=== PATIENT | male | born 1975 | race Caucasian/White ===

== ENCOUNTER 2019-12-23 10:36 | Emergency (ER) | payer OTHER, SELFPAY ==
[2019-12-23 10:40] VITALS: BMI 56.8
[2019-12-23 10:42] VITALS: BP 178/63; PULSE 61; RESP 20; TEMP 36.6; O2SAT 97
[2019-12-23 10:45] VITALS: BP 178/63; PULSE 60; RESP 18; O2SAT 96
--- NOTE | 2019-12-23 10:55 | ED_ITS ---
HPI - Wound/Laceration General: Chief Complaint: Wound/Laceration Stated Complaint: RIGHT WRIST LAC Time Seen by Provider: 12/23/19 10:39 History of Present Illness: HPI narrative: Cut left forearm until box today Onset (ago): hour(s) Location: other Extremity Location: Left: forearm Place: other Patient tetanus UTD: Yes Context: accidental Associated symptoms: Reports no associated symptoms; Denies chills, fever(s), nausea or vomiting Review of Systems Const: Denies: fever(s), chills or body aches Eyes: Denies: change in vision or blurry vision ENMT: Denies: throat pain or nasal congestion Card: Denies: chest pain or dyspnea on exertion Resp: Denies: dyspnea, productive cough or non-productive cough GI: Denies: abdominal pain, nausea or vomiting : Denies: difficulty urinating Musc: Denies: extremity pain Skin/Breast: Reports: other (Laceration left forearm); Denies: rash Neuro: Denies: headache(s) Psych: Denies: anxiety or depression Josr/Lymph: Denies: easy bruising Physical Exam Const: COMMON NORMALS: no acute distress, average body habitus and patient oriented x3 HENMT: COMMON NORMALS: normocephalic HEAD & SCALP: normal to inspection and normocephalic FACE & SINUS: normal facial exam Eye: COMMON NORMALS: conjunctivae normal GENERAL EYE: appearance normal, both eyes and all related structures CONJUNCTIVA: Yes conjunctivae normal Neck/C-Spine: COMMON NORMALS: no JVD Chest: COMMONS NORMALS: normal inspection of the chest Resp: COMMON NORMALS: normal respiratory effort Cardio: COMMON NORMALS: no JVD GI: COMMON NORMALS: Normal to inspection, nondistended, normoactive bowel sounds present Extremity: COMMON NORMALS: normal to inspection and full ROM Neuro: COMMON NORMALS: patient oriented x3 Skin: TRAUMA: laceration (Left forearm approximately inch and half long no active bleeding) Procedures Laceration Laceration 1: Site: upper extremity Side (If applicable): left Size (cm): 2.5 Description: linear Depth: simple, single layer Local Anesthetic: lidocaine 1% Amount of anesthesia used (mL): 2 Skin layer closed with: nylon Size (cm): 5-0 Number of sutures: 3 Technique: simple, interrupted Course Vital Signs: Vital signs: Vital Signs Temperature 97.9 F 12/23/19 10:42 Pulse Rate 63 12/23/19 11:09 Respiratory Rate 18 12/23/19 11:09 Blood Pressure 163/97 12/23/19 11:09 Pulse Oximetry 96 12/23/19 11:09 Discharge Plan Discharge Patient Disposition: Home, Self-Care Clinical Impression: Laceration Condition: Stable Discharge Orders: Discharge Order (Routine); Ordered 12/23/19 Ordered By: Juan Carlos Rizvi Discharge Diet: Usual diet Discharge Activity: Increase activity as tolerated Patient Instructions: Laceration (ED) Activity Restrictions/Additional Instructions: Follow laceration instructions and get sutures removed in 7 days Coding Level of Care Code ED Senior Lead Project Manager for [employer] Fwd Exam Comprehensive
[2019-12-23 11:09] VITALS: BP 163/97; PULSE 63; RESP 18; O2SAT 96
[2019-12-23] MEDS: lidocaine 1% INJ 20 mL 5 ML INTRADERMA (11:14)
== END 2019-12-23 13:49 | disposition home or self-care (01) ==
LOC: ER 11:29
PROVIDERS: Emergency Provider Nurse Practitioner Family
DX: S51.812A Laceration without foreign body of left forearm, initial encounter (principal); W45.8XXA Other foreign body or object entering through skin, initial encounter
CPT/HCPCS: 12001; 12345; 96372; 99281; 99282

== ENCOUNTER 2021-06-21 08:43 | Emergency (ER) | payer OTHER, SELFPAY ==
[2021-06-21 08:55] VITALS: BP 154/94; PULSE 85; RESP 18; TEMP 37.1; O2SAT 97; BMI 51.3
--- NOTE | 2021-06-21 09:11 | XRR_ITS ---
PROCEDURE INFORMATION: Exam: XR Chest Exam date and time: 06/21/2021 9:11 AM Age: 46 years old Clinical indication: Shortness of breath; Additional info: Covid + SOB TECHNIQUE: Imaging protocol: XR of the chest. Views: 1 view. COMPARISON: No relevant prior studies available. FINDINGS: Lungs: Patchy hazy interstitial pulmonary infiltrates are present bilaterally. Pleural spaces: Unremarkable. No pleural effusion. No pneumothorax. Heart/Mediastinum: Unremarkable. No cardiomegaly. Bones/joints: Unremarkable. XR/XR chest 1V portable [id number] IMPRESSION: Bilateral patchy hazy interstitial pulmonary infiltrates consistent with viral pneumonia.
--- NOTE | 2021-06-21 09:12 | ED_ITS ---
Documented by User: EN Faustin 06/21/21 16:13 HPI - COVID General: Chief Complaint: Shortness of Breath/Dyspnea Stated Complaint: SOB Covid + Time Seen by Provider: 06/21/21 08:57 Triage information: Has fever, cough or shortness of breath . Exposure to COVID + person last 14 days History of Present Illness: HPI Narrative: Unvaccinated patient states he tested positive at [facility] 10 days ago for COVID. Started with shortness of breath worsening last night. Said he lost taste and smell about 3 days ago also. Patient denies any chest pains, fever or chills. MD complaint: known COVID positive Prior testing date: 06/12/21 COVID 19 common symptoms: positive fever(s), dyspnea, fatigue, body aches, loss of sense of smell and/or taste and nasal congestion; negative headache(s), nausea or vomiting COVID 19 other sytmptoms: negative chest pain Onset (ago): day(s) Severity: mild Pertinent comorbid conditions: hypertension (Uncontrolled) Treatment prior to arrival: cold medicine COVID Results: No Data to Display Review of Systems Const: Reports: fever(s), body aches and fatigue Eyes: Denies: change in vision or blurry vision ENMT: Reports: nasal congestion Card: Denies: chest pain or dyspnea on exertion Resp: Reports: dyspnea GI: Denies: abdominal pain, nausea or vomiting : Denies: difficulty urinating Musc: Denies: extremity pain Skin/Breast: Denies: rash Neuro: Denies: headache(s) Psych: Denies: anxiety or depression Josr/Lymph: Denies: easy bruising Physical Exam Const: COMMON NORMALS: no acute distress, average body habitus and patient oriented x3 HENMT: COMMON NORMALS: normocephalic HEAD & SCALP: normal to inspection and normocephalic FACE & SINUS: normal facial exam Eye: COMMON NORMALS: conjunctivae normal GENERAL EYE: appearance normal, both eyes and all related structures CONJUNCTIVA: Yes conjunctivae normal Neck/C-Spine: COMMON NORMALS: no JVD Chest: COMMONS NORMALS: normal inspection of the chest Resp: COMMON NORMALS: normal respiratory effort Cardio: COMMON NORMALS: no JVD Extremity: COMMON NORMALS: normal to inspection and full ROM Neuro: COMMON NORMALS: patient oriented x3 Course Vital Signs: Vital signs: Vital Signs Temperature 98.7 F 06/21/21 08:55 Pulse Rate 86 06/21/21 10:52 Respiratory Rate 18 06/21/21 08:55 Blood Pressure 174/123 06/21/21 10:52 Pulse Oximetry 98 06/21/21 10:52 MDM - COVID MDM Narrative: Medical decision making narrative: Patient appears stable. He is in no acute distress. Positive for COVID more than 10 days. Does not qualify for MCA infusion. Chest x-ray shows viral pneumonia. Patient does not take blood pressure medication and has been told the last few years he has high blood pressure and he said he has chosen to watch instead of taking medication. Patient was advised to take medication as directed record blood pressures twice a day follow-up with his primary care provider and see if they are want to start him on blood pressure medication. Patient was given senna spirometer and instructed on lung exercises. COVID Results: No Data to Display Discharge Plan Discharge Patient Disposition: Home Clinical Impression: COVID-19, Borderline hypertension Condition: Stable Prescriptions: New Decadron 6 mg tablet 6 mg PO DAILY Qty: 7 RF: 0 ProAir HFA 90 mcg/actuation HFA aerosol inhaler 2 inh inhalation Q4H PRN (Reason: shortness of breath or wheezing) Qty: 6.7 RF: 0 Discharge Orders: Discharge ED (Routine); Ordered 06/21/21 Ordered By: Juan Carlos Rizvi Discharge Diet: Usual diet Discharge Activity: Increase activity as tolerated Patient Instructions: How to Recover from COVID-19 at Home (ED) Activity Restrictions/Additional Instructions: Follow-up with medical provider as directed. Take medications as prescribed. Return to the ER or your medical provider if condition worsens. Please read and understand discharge instructions. If any questions ask please. Monitor blood pressure readings daily, record those and submit readings after 2 weeks to your primary care provider Coding Level of Care Code ED Strategy Director for Ch[employer] Fwd Exam Comprehensive Documented by User: Stephon Mckeon DO 06/24/21 06:17 HPI - COVID General: Chief Complaint: Shortness of Breath/Dyspnea Stated Complaint: SOB Covid + Time Seen by Provider: 06/21/21 08:57 COVID Results: No Data to Display Course Vital Signs: Vital signs: Vital Signs Temperature 98.7 F 06/21/21 08:55 Pulse Rate 86 06/21/21 10:52 Respiratory Rate 18 06/21/21 08:55 Blood Pressure 174/123 06/21/21 10:52 Pulse Oximetry 98 06/21/21 10:52 MDM - COVID MDM Narrative: Medical decision making narrative: Chart reviewed and patient discussed with midlevel. Agree with assessment and plan. COVID Results: No Data to Display Discharge Plan Discharge Patient Disposition: Home Clinical Impression: COVID-19, Borderline hypertension Condition: Stable Prescriptions: New Decadron 6 mg tablet 6 mg PO DAILY Qty: 7 RF: 0 ProAir HFA 90 mcg/actuation HFA aerosol inhaler 2 inh inhalation Q4H PRN (Reason: shortness of breath or wheezing) Qty: 6.7 RF: 0 Discharge Orders: Discharge ED (Routine); Ordered 06/21/21 Ordered By: Juan Carlos Rizvi Discharge Diet: Usual diet Discharge Activity: Increase activity as tolerated Patient Instructions: How to Recover from COVID-19 at Home (ED) Activity Restrictions/Additional Instructions: Follow-up with medical provider as directed. Take medications as prescribed. Return to the ER or your medical provider if condition worsens. Please read and understand discharge instructions. If any questions ask please. Monitor blood pressure readings daily, record those and submit readings after 2 weeks to your primary care provider Coding Level of Care Code ED Strategy Director for [employer]ora Fwd Exam Comprehensive
[2021-06-21] MEDS: dexamethasone 4 mg Tablet 10 MG PO (10:34)
[2021-06-21 10:52] VITALS: BP 174/123; PULSE 86; O2SAT 98
== END 2021-06-21 10:53 | disposition home or self-care (01) ==
PROVIDERS: Emergency Provider Nurse Practitioner Family
DX: U07.1 COVID-19 (principal); R03.0 Elevated blood-pressure reading, without diagnosis of hypertension
CPT/HCPCS: 71045; 99283; J8540

== ENCOUNTER 2021-06-23 09:27 | Outpatient (RCR) | payer OTHER, SELFPAY | END 2021-07-10 23:59 | disposition home or self-care (01) | LOC: SPT 09:27 | PROVIDERS: PCP Family Medicine; Visit Provider Family Medicine | DX: M25.511 Pain in right shoulder (principal) | CPT/HCPCS: 97161 ==

== ENCOUNTER 2021-08-08 06:00 | Outpatient (RCR) | payer OTHER, SELFPAY | END 2021-09-07 23:59 | disposition home or self-care (01) | LOC: SPT 06:00 | PROVIDERS: PCP Family Medicine; Visit Provider Family Medicine | DX: M25.511 Pain in right shoulder (principal) | CPT/HCPCS: 97110 ==

== ENCOUNTER 2021-09-08 06:00 | Outpatient (RCR) | payer OTHER, SELFPAY | END 2021-10-07 23:59 | disposition home or self-care (01) | LOC: SPT 06:00 | PROVIDERS: PCP Family Medicine; Visit Provider Family Medicine | DX: M25.511 Pain in right shoulder (principal) | CPT/HCPCS: 97110 ==

== ENCOUNTER 2021-10-08 | Outpatient (RCR) | payer OTHER, SELFPAY | END 2021-10-25 23:55 | disposition home or self-care (01) | LOC: SPT | PROVIDERS: PCP Family Medicine; Visit Provider Family Medicine | DX: M25.511 Pain in right shoulder (principal) | CPT/HCPCS: 97110 ==

== ENCOUNTER 2021-11-08 06:00 | Outpatient (RCR) | payer OTHER, SELFPAY | END 2021-12-07 23:59 | disposition home or self-care (01) | LOC: SPT 06:00 | PROVIDERS: PCP Family Medicine; Referring Provider Family Medicine; Visit Provider Family Medicine | DX: M25.511 Pain in right shoulder (principal) | CPT/HCPCS: 97110 ==

== ENCOUNTER 2021-12-08 06:00 | Outpatient (RCR) | payer OTHER, SELFPAY | END 2022-01-07 23:59 | disposition home or self-care (01) | LOC: SPT 06:00 | PROVIDERS: PCP Family Medicine; Referring Provider Family Medicine; Visit Provider Family Medicine | DX: M25.511 Pain in right shoulder (principal) | CPT/HCPCS: 97110 ==

== ENCOUNTER 2022-01-08 06:00 | Outpatient (RCR) | payer OTHER, SELFPAY | END 2022-02-07 23:59 | disposition home or self-care (01) | LOC: SPT 06:00 | PROVIDERS: PCP Family Medicine; Referring Provider Family Medicine; Visit Provider Family Medicine | DX: M25.511 Pain in right shoulder (principal) | CPT/HCPCS: 97110 ==

== ENCOUNTER 2022-02-08 06:00 | Outpatient (RCR) | payer OTHER, SELFPAY | END 2022-03-09 23:59 | disposition home or self-care (01) | LOC: SPT 06:00 | PROVIDERS: PCP Family Medicine; Referring Provider Family Medicine; Visit Provider Family Medicine | DX: M25.511 Pain in right shoulder (principal) | CPT/HCPCS: 97110 ==

== ENCOUNTER 2023-08-23 16:49 | Observation (INO) | payer OTHER, SELFPAY ==
[2023-08-23] VITALS (8 sets, daily range): BP systolic 133–170; BP diastolic 83–122; PULSE 58–117; RESP 18; TEMP 36.6–36.8; O2SAT 92–100
--- NOTE | 2023-08-23 17:12 | ECG_ITS ---
[facility] Test Date: 2023-08-23 Pat Name: Ravin Carmichael Department: Room: Gender: Male State Appellate Clerk: : 1975 Requested By: Stephon Hdz Order Number: [id number] [place] MD: Russell Sullivan M.D. Measurements Intervals [place] Rate: 70 P: 63 MO: 188 QRS: 41 QRSD: 114 T: 47 QT: 376 QTc: 408 Interpretive Statements SINUS RHYTHM WITH SINUS ARRHYTHMIA MODERATE INTRAVENTRICULAR CONDUCTION DELAY [110+ ms QRS DURATION] No previous ECG available for comparison Electronically Signed On 08-23-2023 22:00:37 CDT by Russell Sullivan M.D. [id number]
--- NOTE | 2023-08-23 17:17 | ED_ITS ---
HPI - Abdominal Pain 2 General: Chief Complaint: Abdominal Pain Stated Complaint: abd pain Time Seen by Provider: 08/23/23 17:01 Source: patient Mode of arrival: ambulatory History of Present Illness: 48-year-old male presents emergency room with sudden onset of abdominal pain just to the left of the midline began a few hours ago severe nausea and vomiting patient has not had any dysuria urgency or frequency no hematuria no hematemesis or coffee-ground emesis. No previous abdominal surgeries has not vomited but has been very nauseous. Severe cramping abdominal pain. He has had this pain in the past but it has resolved spontaneously this time it has persisted and is much more intense. MD elicited complaint: abdominal pain Onset (ago): hour(s) Pain Consistency: constant Location: LUQ and LLQ Severity: severe Quality: cramping Exacerbating factors: eating and movement Relieving factors: nothing Associated Symptoms: Reports GI cramping and nausea; Denies anorexia, belching, bloating, change in bowel habits, change in stool character, chills, coffee ground emesis, constipation, diarrhea, dyspepsia, dysuria, excessive flatus, fever(s), heartburn, hematochezia, hematuria, hematemesis, fecal incontinence, loose stools, melena, poor appetite, syncope and vomiting Review of Systems 2 Const: Denies: fever(s) or chills Card: Denies: chest pain or syncope Resp: Denies: dyspnea GI: Reports: abdominal pain, nausea and GI cramping; Denies: vomiting, hematemesis, coffee ground emesis, heartburn, diarrhea, constipation, bloating, belching, excessive flatus, fecal incontinence, change in bowel habits, change in stool character, hematochezia or melena : Denies: dysuria, urinary frequency, urinary urgency or hematuria Musc: Denies: neck pain or back pain Skin/Breast: Denies: rash PFSH ED 2 PFSH: Medical History Obesity COVID-19 Social History Smoking and tobacco/nicotine status: never used tobacco/nicotine Alcohol intake: current Alcohol intake frequency: holidays/special occasions only Substance/Drug Use: never Physical Exam 2 Const: COMMON NORMALS: no acute distress GENERAL APPEARANCE: cooperative and comfortable ORIENTATION/CONSCIOUSNESS: Yes awake, Yes oriented to person, Yes oriented to place and Yes oriented to time HENMT: COMMON NORMALS: normocephalic, atraumatic and hearing grossly normal bilaterally HEAD & SCALP: normocephalic and atraumatic Resp: COMMON NORMALS: normal respiratory effort, No retractions, No use of accessory muscles and clear to auscultation bilaterally AUSCULTATION: clear to auscultation bilaterally Cardio: COMMON NORMALS: regular rate, regular rhythm and No murmurs present (Cardio) RATE: regular rate RHYTHM: regular rhythm GI: COMMON NORMALS: Soft to palpation and No hepatosplenomegaly present A USCULTATION: Yes Hypoactive bowel sounds present PALPATION: Yes Soft to palpation, No Tenderness to palpation present (GI), No Guarding due to palpation present (GI) and Yes No hepatosplenomegaly present Extremity: COMMON NORMALS: normal to inspection, capillary refill normal, no clubbing, cyanosis or edema, no calf tenderness and no pedal edema Neuro: SENSORIUM/ORIENTATION: Yes oriented to person, Yes oriented to place and Yes oriented to time Skin: COMMON NORMALS: no rashes or lesions noted GENERAL SKIN EXAM: no rashes or lesions noted Course 2 Vital Signs: Vital signs: Vital Signs Temperature 97.2 F L 08/24/23 07:57 Pulse Rate 64 08/24/23 07:57 Respiratory Rate 22 H 08/24/23 07:57 Blood Pressure 139/88 08/24/23 07:57 Pulse Oximetry 98 08/24/23 07:57 Oxygen Delivery Me thod Room Air 08/24/23 07:57 MDM - Abdominal Pain Medical Decision Making Persistent severe abdominal pain. Question of partial bowel obstruction on the CT. Patient's exam and findings are consistent with this. We did at the request surgery do a CT without oral and IV contrast which is pending we will ops patient with medicine consult surgery discussed with patient Medical Records I reviewed the patient's medical records. Lab Data I reviewed the patient's lab results. 08/24/23 02:56 08/24/23 02:56 Labs/Radiology: Radiology Impressions Abdomen/Pelvis CT 08/23/23 18:33 IMPRESSION: 1. Findings concerning for partial small bowel obstruction in the proper clinical setting. Oral contrast is visualized in the stomach. No evidence of oral contrast in the small bowel or colon. Gastroparesis would be difficult to exclude. Consider additional bolus of oral contrast with delayed imaging if clinically warranted. Abdomen X-Ray 08/24/23 08:15 IMPRESSION: Contrast is seen in the colon. Previously described dilated bowel loops are not appreciated on the current radiograph. Laboratory Results WBC 13.40 10^3/uL (3.29-11.43) H 08/23/23 17:19 RBC 5.18 10^6/uL (3.85-5.65) 08/23/23 17:19 Hgb 15.40 g/dL (11.27-16.99) 08/23/23 17:19 Hct 44.0 % (37-53) 08/23/23 17:19 MCV 84.9 fl (82-101) 08/23/23 17:19 MCH 29.7 pg (27-33) 08/23/23 17:19 MCHC 35.0 g/dL (30-55) 08/23/23 17:19 RDW 13.2 % (12.1-15.1) 08/23/23 17:19 Plt Count 339 10^3/cmm (157-399) 08/23/23 17:19 MPV 9.2 fL (7.4-10.4) 08/23/23 17:19 Neut % (Auto) 76.0 % 08/23/23 17:19 Lymph % (Auto) 16.3 % 08/23/23 17:19 [place] % (Auto) 6.1 % 08/23/23 17:19 Eos % (Auto) 0.9 % 08/23/23 17:19 Baso % (Auto) 0.4 % 08/23/23 17:19 Neut # (Auto) 10.18 10^3/uL (1.8-7.7) H 08/23/23 17:19 Lymph # (Auto) 2.2 10^3/uL (0.8-4.8) 08/23/23 17:19 [place] # (Auto) 0.8 10^3/uL (0.2-0.9) 08/23/23 17:19 Eos # (Auto) 0.1 10^3/uL (0.0-0.8) 08/23/23 17:19 Baso # (Auto) 0.1 10^3/uL (0.0-0.1) 08/23/23 17:19 Nucleated RBC % (auto) 0 % 08/23/23 17:19 Nucleated RBCs # 0.0 /100WBC 08/23/23 17:19 Sodium 139 mmol/L (136-145) 08/23/23 17:19 Potassium 3.4 mmol/L (3.5-5.1) L 08/23/23 17:19 Chloride 100 mmol/L (98-107) 08/23/23 17:19 Carbon Dioxide 25 mmol/L (22-29) 08/23/23 17:19 Anion Gap 17.4 (5-19) 08/23/23 17:19 BUN 18 mg/dL (6-20) 08/23/23 17:19 Creatinine 0.8 mg/dL (0.7-1.2) 08/23/23 17:19 GFR Calculation 104.1 mL/min (90-130) 08/23/23 17:19 Glucose 120 mg/dL (65-115) H 08/23/23 17:19 Calculated Osmolality 291 mOsm/kg (285-295) 08/23/23 17:19 Lactate 2.7 mmol/L (0.5-2.2) H 08/23/23 17:19 Calcium 10.0 mg/dL (8.5-10.5) 08/23/23 17:19 Total Bilirubin 0.3 mg/dL (0.15-1.2) 08/23/23 17:19 AST 19 U/L (0-40) 08/23/23 17:19 ALT 21 U/L (0-41) 08/23/23 17:19 Alkaline Phosphatase 111 U/L (40-130) 08/23/23 17:19 Total Protein 7.7 g/dL (6.6-8.7) 08/23/23 17:19 Albumin 4.5 g/dL (3.5-5.2) 08/23/23 17:19 Globulin 3.2 g/dL (1.3-4.6) 08/23/23 17:19 Lipase 21 U/L (13-60) 08/23/23 17:19 All radiology interpretation(s) finalized by discharge Discharge Plan Discharge Patient Disposition: Placed in Observation Admit Provider: Main [facility] Clinical Impression: Small bowel obstruction, Elevated BP without diagnosis of hypertension Condition: Stable Coding Level of Care Code ED Algorithm Design Engineer for Dora Dhaliwal
--- NOTE | 2023-08-23 17:22 | CTR_ITS ---
PROCEDURE INFORMATION: Exam: CT Abdomen And Pelvis Without Contrast Exam date and time: 08/23/2023 5:32 PM Age: 48 years old Clinical indication: Abdominal pain; Generalized; Patient HX: Larry flank pain and epigastric pain TECHNIQUE: Imaging protocol: Computed tomography of the abdomen and pelvis without contrast. Radiation optimization: All CT scans at this facility use at least one of these dose optimization techniques: automated exposure control; mA and/or kV adjustment per patient size (includes targeted exams where dose is matched to clinical indication); or iterative reconstruction. COMPARISON: CR XR chest 1V portable [id number] 06/21/2021 9:18 AM RADIATION DOSE METRICS: Total DLP (mGy-cm): 1632.13 FINDINGS: Lungs: Lung bases are clear. No pleural effusion. Liver: Normal. No mass. Gallbladder and bile ducts: Normal. No calcified stones. No ductal dilation. Pancreas: Normal. No ductal dilation. Spleen: Normal. No splenomegaly. Adrenal glands: Normal. No mass. Kidneys and ureters: Normal. No hydronephrosis. Stomach and bowel: There are several loops of mildly distended small bowel in the left side of the abdomen. The distal small bowel and the colon are nondistended. Appendix: The appendix is normal. Intraperitoneal space: Unremarkable. No free air. No significant fluid collection. Vasculature: Unremarkable. No abdominal aortic aneurysm. Lymph nodes: Unremarkable. No enlarged lymph nodes. Urinary bladder: Unremarkable as visualized. Reproductive: Unremarkable as visualized. Bones/joints: Unremarkable. No acute fracture. Soft tissues: There is a small umbilical hernia containing mesenteric fat. CT/CT kidney stone [id number] IMPRESSION: 1. Mild small bowel distension suggesting the possibility of early mechanical small bowel obstruction. 2. Umbilical hernia
[2023-08-23 17:27] LABS: Basophils # 0.1 10^3/uL (0.0-0.1); Basophils % 0.4 %; Eosinophils # 0.1 10^3/uL (0.0-0.8); Eosinophils % 0.9 %; Lymphocytes # 2.2 10^3/uL (0.8-4.8); Lymphocytes % 16.3 %; Mean Corpuscular Hemoglobin 29.7 pg (27-33); Mean Corpuscular Volume 84.9 fl (82-101); Mean Platelet Volume 9.2 fL (7.4-10.4); Monocytes # 0.8 10^3/uL (0.2-0.9); Monocytes % 6.1 %; Neutrophils # 10.18 10^3/uL (1.8-7.7); Nucleated Red Blood Cells % 0 %; Platelet Count 339 10^3/cmm (157-399); Red Blood Count 5.18 10^6/uL (3.85-5.65); Red Cell Distribution Width 13.2 % (12.1-15.1)
[2023-08-23] MEDS: diphenhydrAMINE 50 mg/mL SDV 1mL IVP (17:38)
[2023-08-23] MEDS: morphine 4 mg/mL SDV 1 mL IVP (17:39)
[2023-08-23 17:44] LABS: Alanine Aminotransferase 21 U/L (0-41); Albumin Level 4.5 g/dL (3.5-5.2); Alkaline Phosphatase 111 U/L (40-130); Anion Gap 17.4 (5-19); Aspartate Amino Transferase 19 U/L (0-40); Blood Urea Nitrogen 18 mg/dL (6-20); Carbon Dioxide 25 mmol/L (22-29); Chloride 100 mmol/L (98-107); Creatinine Clr Calc Pharmacy 168.4186; Globulin 3.2 g/dL (1.3-4.6); Glomerular Filtration Rate 104.1 mL/min (90-130); Glucose 120 mg/dL (65-115); Lipase 21 U/L (13-60); Osmolality Calculated 291 mOsm/kg (285-295); Potassium 3.4 mmol/L (3.5-5.1); Sodium 139 mmol/L (136-145); Total Bilirubin 0.3 mg/dL (0.15-1.2); Total Protein 7.7 g/dL (6.6-8.7)
--- NOTE | 2023-08-23 18:33 | CTR_ITS ---
PROCEDURE INFORMATION: Exam: CT Abdomen And Pelvis With Contrast Exam date and time: 08/23/2023 7:36 PM Age: 48 years old Clinical indication: Other: Possible sbo; Patient HX: Concern for beginnings of sbo on renal stone CT. ; Additional info: Abd pain, delayed imaging to eval for transition of contrast through TECHNIQUE: Imaging protocol: Computed tomography of the abdomen and pelvis with contrast. Radiation optimization: All CT scans at this facility use at least one of these dose optimization techniques: automated exposure control; mA and/or kV adjustment per patient size (includes targeted exams where dose is matched to clinical indication); or iterative reconstruction. Contrast material: OMNI 350; Contrast volume: 100 ml; Contrast route: INTRAVENOUS (IV); Other contrast: Oral, READI CAT, 450; COMPARISON: CT kidney stone [id number] 08/23/2023 5:32 PM RADIATION DOSE METRICS: Total DLP (mGy-cm): 1594.43 FINDINGS: Lungs: Subsegmental bibasilar atelectasis. The visualized lung bases are otherwise grossly clear. Diaphragm: No evidence of diaphragmatic defect. Liver: No focal hepatic lesion. Gallbladder and bile ducts: Unremarkable. No intra-hepatic or extra-hepatic biliary dilatation. Pancreas: Unremarkable. Spleen: Unremarkable. Adrenal glands: Unremarkable. Kidneys and ureters: No renal parenchymal abnormality. No hydronephrosis or ureteral stone. Stomach and bowel: Multiple loops of dilated small bowel measuring up to 3.8 cm with scattered air-fluid levels and nondistention of the distal ileum compatible with partial small bowel obstruction in the proper clinical setting. No discrete transition point though there is relative change in caliber in the right lower quadrant. Oral contrast is visualized in the stomach. No evidence of oral contrast in the small bowel or colon. Few scattered colonic diverticula without evidence of acute diverticulitis. Appendix: Normal appendix. Intraperitoneal space: No evidence of free air or fluid collection. Vasculature: No aneurysmal dilatation or dissection of the abdominal aorta. The celiac trunk, SMA and YANA are grossly patent. No evidence of IVC thrombus. The portal vein, SMV and splenic veins are grossly patent. Lymph nodes: No adenopathy. Urinary bladder: Grossly unremarkable. Reproductive: Grossly unremarkable. Bones/joints: No evidence of acute fracture or aggressive osseous lesion. Soft tissues: No evidence of fluid collection or hematoma in the superficial soft tissues. CT/CT abdomen pelvis w con* [id number] IMPRESSION: 1. Findings concerning for partial small bowel obstruction in the proper clinical setting. Oral contrast is visualized in the stomach. No evidence of oral contrast in the small bowel or colon. Gastroparesis would be difficult to exclude. Consider additional bolus of oral contrast with delayed imaging if clinically warranted.
[2023-08-23] MEDS: barium sulfate 450 mL Oral Susp PO (19:37)
[2023-08-23] MEDS: iohexol 350 mg/mL 500 mL Btl (per mL) IV (19:39)
--- NOTE | 2023-08-23 19:43 | P.HP_ITS ---
Providers/Chief Complaint 2 Admitting Physician: Main Cox Primary Care Provider: Kaitlin Camacho MD Chief Complaint: abd pain History of Present Illness Pleasant 48-year-old gentleman with history of obesity, recently has been trying some intermittent fasting and some dietary modifications reports that has had some change in bowel pattern having a bowel movement once every 2 to 3 days which was somewhat more unusual for him. Today he developed abdominal pain, nausea, irritation. Did have a bowel movement earlier today around 11 AM. Has not had any flatus and has felt bloated. CT abdomen pelvis in ER with mild small bowel distention, possibility of early mechanical small bowel obstruction. Umbilical hernia containing mesenteric fat. Review of Systems 2 Const: Denies: fever(s), chills, body aches or malaise ENMT: Denies: throat pain Card: Denies: chest pain, edema, pre-syncope or dyspnea on exertion Resp: Denies: dyspnea, productive cough, change in phlegm color or hemoptysis GI: Reports: abdominal pain, nausea and belching; Denies: vomiting, diarrhea, constipation, hematochezia or melena : Denies: flank pain, difficulty urinating, urinary frequency or hematuria Musc: Denies: back pain, joint swelling or joint redness Skin/Breast: Denies: rash or new lesions Neuro: Denies: headache(s), numbness in extremities, weakness in extremities, dizziness, confusion or seizure-like activity Medications/Allergies Home Medications Medication Instructions Recorded Confirmed Last Taken Type albuterol sulfate 90 mcg/actuation 2 inh inhalation Q4H PRN shortness 06/21/21 Unknown Rx aerosol inhaler (ProAir HFA) of breath or wheezing #6.7 grams dexamethasone 6 mg tablet 6 mg PO DAILY #7 tabs 06/21/21 Unknown Rx (Decadron) Allergies Allergy/AdvReac Type Severity Reaction Status Date / Time morphine Allergy ALGY-Rash Verified 08/23/23 16:55 PFSH Acute 2 PFSH: Medical History (Updated 08/23/23 @ 19:48 by Main Cox MD) Obesity COVID-19 Social History (Updated 08/23/23 @ 19:45 by Main Cox MD) Smoking and tobacco/nicotine status: never used tobacco/nicotine Alcohol intake: current Alcohol intake frequency: holidays/special occasions only Substance/Drug Use: never Vitals/I&O/Wt Last Vital Signs Temp 98.2 F 08/23/23 16:50 Pulse 60 08/23/23 18:30 Resp 18 08/23/23 16:50 BP 150/99 08/23/23 18:30 Pulse Ox 96 08/23/23 18:30 O2 Del Method Room Air 08/23/23 18:30 Weight last 48 hrs Weight 151.953 kg Physical Exam 2 Narrative: Accompanied by his . Const: COMMON NORMALS: patient oriented x3 and alert GENERAL APPEARANCE: c ooperative ORIENTATION/CONSCIOUSNESS: Yes awake HENMT: COMMON NORMALS: oropharynx normal Neck/C-Spine: COMMON NORMALS: no JVD Resp: COMMON NORMALS: normal respiratory effort and clear to auscultation bilaterally AUSCULTATION: clear to auscultation bilaterally Cardio: COMMON NORMALS: no JVD, regular rhythm, S1 normal heart sound present, S2 normal heart sound present and No murmurs present (Cardio) RHYTHM: regular rhythm HEART SOUNDS: S1 normal heart sound present and S2 normal heart sound present GI: COMMON NORMALS: Normal to inspection, nondistended, normoactive bowel sounds present, Soft to palpation and non-tender PALPATION: Yes Soft to palpation Extremity: COMMON NORMALS: no joint enlargement and no pedal edema Neuro: COMMON NORMALS: patient oriented x3 and moves all extremities S ENSORIUM/ORIENTATION: Yes alert Skin: COMMON NORMALS: no rashes or lesions noted GENERAL SKIN EXAM: no rashes or lesions noted Data 08/23/23 17:19 08/23/23 17:19 A&P Assessment and plan (1) Small bowel obstruction: Abdominal pain and distention, nausea, irritation, lack of flatus. Small bowel distention on CT. Reviewed vitals, CBC, CMP, CT abdomen pelvis, EKG on my interpretation without signs of ischemia, reviewed ER note, discussed with ER provider. Given symptoms, imaging findings possible small bowel obstruction. Risk of progression to full obstruction, bowel ischemia, other complications. Surgical consultation has been obtained, he is having oral barium contrast for contrast- enhanced study. He states symptoms may have built up over several weeks with reduction in bowel movements, denies past history of obstruction, has not had any abdominal surgeries. Check lactic acid. Discussed with him n.p.o. at current time, has not been vomiting so far, so not placing NGT for now, encouraged ambulation. IV fluid, monitor for risk of fluid overload. Potassium included due to mild hypokalemia, monitor for risk of electrolyte abnormality/hyperkalemia, recheck chemistry. (2) Elevated BP without diagnosis of hypertension: Blood pressure elevated in ER 107/105, does not have history of hypertension, monitor blood pressures. Possibly situational versus undiagnosed hypertension. Plan Obesity: He has been trying some dietary changes recently including intermittent fasting, modifying macronutrient intake. Follow-up with primary provider for reassessment and assistance with weight loss Attestations 2 Medical Necessity Statement*: Please observation for additional assessment management of possible small bowel obstruction. Diagnoses Small bowel obstruction K56.609 Elevated BP without diagnosis of hypertension R03.0
[2023-08-23 21:16] LABS: Lactate (Lactic Acid level) 2.7 mmol/L (0.5-2.2)
[2023-08-23] MEDS: sodium chloride 0.9% 1,000 ML 999 ML IV (22:07)
[2023-08-23] MEDS: heparin 5,000 unit/mL INJ 1 mL 5000 UNIT SUBCUT (22:10)
[2023-08-24 00:13] VITALS: BP 120/70; PULSE 71; RESP 18; TEMP 36.6; O2SAT 98
[2023-08-24 01:03] LABS: Add Urine Microscopic? NO; Charge for UA Resulting for Rev
[2023-08-24 01:05] LABS: Bilirubin Urine Neg (Negative); Blood Urine Neg (Negative); Glucose Urine UA Norm (Normal); Ketones Urine Negative (Negative); Leukocyte Esterase Urine Negative (Negative); Nitrate Urine Negative (Negative); Protein Urine Neg (Negative); Specific Gravity, Urine 1.005 (1.005-1.030); Urine Appearance Clear (CLEAR); Urine Color Colorless (Yellow); Urobilinogen Urine Norm (Negative); pH Urine 5 (5-7)
[2023-08-24] MEDS: D5-NS 0.45% + KCL 20 mEq 20 MEQ/1,000 ML BAG 100 MEQ IV (01:14)
[2023-08-24 03:56] LABS: Basophils # 0.1 10^3/uL (0.0-0.1); Basophils % 0.5 %; Eosinophils # 0.1 10^3/uL (0.0-0.8); Hematocrit 41.4 % (37-53); Lymphocytes # 2.7 10^3/uL (0.8-4.8); Mean Corpuscular HGB Conc 33.6 g/dL (30-55); Mean Corpuscular Hemoglobin 29.2 pg (27-33); Mean Platelet Volume 9.5 fL (7.4-10.4); Monocytes # 0.8 10^3/uL (0.2-0.9); Monocytes % 7.7 %; Neutrophils # 6.76 10^3/uL (1.8-7.7); Neutrophils % 64.6 %; Nucleated Red Blood Cells % 0 %; Platelet Count 338 10^3/cmm (157-399); Red Blood Count 4.76 10^6/uL (3.85-5.65); Red Cell Distribution Width 13.3 % (12.1-15.1); White Blood Count 10.45 10^3/uL (3.29-11.43)
[2023-08-24 04:12] VITALS: BP 146/86; PULSE 67; RESP 16; TEMP 36.7; O2SAT 93
[2023-08-24 04:41] LABS: Anion Gap 14.3 (5-19); Blood Urea Nitrogen 13 mg/dL (6-20); Calcium 8.7 mg/dL (8.5-10.5); Carbon Dioxide 23 mmol/L (22-29); Chloride 104 mmol/L (98-107); Creatinine Clr Calc Pharmacy 192.4784; Glomerular Filtration Rate 121.4 mL/min (90-130); Glucose 109 mg/dL (65-115); Osmolality Calculated 287 mOsm/kg (285-295); Potassium 3.3 mmol/L (3.5-5.1); Sodium 138 mmol/L (136-145)
[2023-08-24 06:00] VITALS: PULSE 55
[2023-08-24 07:57] VITALS: BP 139/88; PULSE 64; RESP 22; TEMP 36.2; O2SAT 98
--- NOTE | 2023-08-24 08:15 | XRR_ITS ---
PROCEDURE INFORMATION: Exam: XR Abdomen Exam date and time: 08/24/2023 8:37 AM Age: 48 years old Clinical indication: Other: Sbo TECHNIQUE: Imaging protocol: Radiologic exam of the abdomen. Views: 2 Views. Upright and supine views. COMPARISON: CT abdomen pelvis w con* [id number] 08/23/2023 7:36 PM FINDINGS: Gastrointestinal tract: Contrast is seen in the colon. The previously seen dilated small bowel loops are not well seen on the current radiograph. Intraperitoneal space: Normal. No free air. Bones/joints: Unremarkable for age. Soft tissues: Limited exam due to the patient's body habitus. XR/XR abdomen min 2V [id number] IMPRESSION: Contrast is seen in the colon. Previously described dilated bowel loops are not appreciated on the current radiograph.
[2023-08-24] MEDS: mineral oil ENEMA 133 mL PR (10:38)
[2023-08-24] MEDS: polyethylene glycol 3350 Pkt 17 gm PO (10:38)
[2023-08-24] MEDS: mineral oil 30 mL UDC PO (10:38)
[2023-08-24] MEDS: potassium chloride ER 20 mEq Tablet 40 MEQ PO (10:38)
[2023-08-24 12:40] VITALS: BP 129/82; PULSE 60; RESP 20; TEMP 36.4; O2SAT 98
--- NOTE | 2023-08-24 15:21 | PM.DCS ---
Discharge Providers Date of Admission: 08/23/23 19:28 Date of Discharge: August 24, 2023 Attending Provider at Admission: Main Cox Attending Provider at Discharge: Main Cox Primary Care Provider: Kaitlin Camacho MD Diagnoses at Discharge Discharge Diagnosis (1) Small bowel obstruction: Status: Acute (2) Elevated BP without diagnosis of hypertension: Status: Acute Reason for Visit Reason for Visit: abd pain Brief History: Pleasant 48-year-old gentleman with history of obesity, recently has been trying some intermittent fasting and some dietary modifications reports that has had some change in bowel pattern having a bowel movement once every 2 to 3 days which was somewhat more unusual for him. Today he developed abdominal pain, nausea, irritation. Did have a bowel movement earlier today around 11 AM. Has not had any flatus and has felt bloated. CT abdomen pelvis in ER with mild small bowel distention, possibility of early mechanical small bowel obstruction. Umbilical hernia containing mesenteric fat. Hospital Course Hospital Course He was hospitalized for additional assessment and management for small bowel obstruction, was assessed by surgery, additional imaging obtained with contrast CT study, on that study noted some pooling of contrast in the stomach, follow-up x-ray obtained this morning noted contrast passing to the colon with partial small bowel obstruction. He was noted to have significant constipation. Was given laxatives, mineral oil, received an enema, had a small bowel movement. Was instructed by surgery to continue liquid diet for now, advance slowly/gradually, avoid constipation. HCTZ for now is held to avoid dehydration/constipation. Noted some hypotension on presentation which did improve while in the hospital and even without HCTZ, he is asked to monitor blood pressures, please reassess, in case of recurrent/persistent hypertension and alternative agent may need to be added being mindful to avoid dehydration/constipation. He is also asked to ambulate to help with bowel transit. With initial pulling functional stomach some consideration could be given to gastroparesis in case of persistent slow transit, irritation, nausea, or other symptoms, consider also referral for assessment by gastric emptying study. He has been trying to lose weight, please follow-up with his progress and assist with weight loss. Physical Exam Narrative: Visited by family. Standing up/walking in the room. Const: COMMON NORMALS: patient oriented x3 and alert GENERAL APPEARANCE: cooperative ORIENTATION/CONSCIOUSNESS: Yes awake HENMT: COMMON NORMALS: oropharynx normal Neck/C-Spine: COMMON NORMALS: no JVD Resp: COMMON NORMALS: normal respiratory effort and clear to auscultation bilaterally AUSCULTATION: clear to auscultation bilaterally Cardio: COMMON NORMALS: no JVD, regular rhythm, S1 normal heart sound present, S2 normal heart sound present and No murmurs present (Cardio) RHYTHM: regular rhythm HEART SOUNDS: S1 normal heart sound present and S2 normal heart sound present GI: COMMON NORMALS: Normal to inspection, nondistended, normoactive bowel sounds present, Soft to palpation and non-tender PALPATION: Yes Soft to palpation Extremity: COMMON NORMALS: no joint enlargement and no pedal edema Neuro: COMMON NORMALS: patient oriented x3 and moves all extremities SENSORIUM/ORIENTATION: Yes alert Skin: COMMON NORMALS: no rashes or lesions noted GENERAL SKIN EXAM: no rashes or lesions noted Discharge Data Studies Completed and Pending Completed Studies During Hospitalization Category Date Time Status CT abdomen pelvis w con* [id number] Stat Cat Scan 08/23/23 18:[address] kidney stone [id number] Stat Cat Scan 08/23/23 17:22 Completed XR abdomen min 2V [id number] Stat Exams 08/24/23 08:15 Completed Pending at discharge Category Date Time Status Basic Metabolic Panel AM LABS Lab 08/25/23 04:00 Ordered Basic Metabolic Panel AM LABS Lab 08/26/23 04:00 Ordered Complete Blood Count w/Auto AM LABS Lab 08/25/23 04:00 Ordered Complete Blood Count w/Auto AM LABS Lab 08/26/23 04:00 Ordered Radiology Impressions Abdomen/Pelvis CT 08/23/23 18:33 IMPRESSION: 1. Findings concerning for partial small bowel obstruction in the proper clinical setting. Oral contrast is visualized in the stomach. No evidence of oral contrast in the small bowel or colon. Gastroparesis would be difficult to exclude. Consider additional bolus of oral contrast with delayed imaging if clinically warranted. Abdomen X-Ray 08/24/23 08:15 IMPRESSION: Contrast is seen in the colon. Previously described dilated bowel loops are not appreciated on the current radiograph. Laboratory Results WBC 10.45 10^3/uL (3.29-11.43) 08/24/23 02:56 RBC 4.76 10^6/uL (3.85-5.65) 08/24/23 02:56 Hgb 13.90 g/dL (11.27-16.99) 08/24/23 02:56 Hct 41.4 % (37-53) 08/24/23 02:56 MCV 87.0 fl (82-101) 08/24/23 02:56 MCH 29.2 pg (27-33) 08/24/23 02:56 MCHC 33.6 g/dL (30-55) 08/24/23 02:56 RDW 13.3 % (12.1-15.1) 08/24/23 02:56 Plt Count 338 10^3/cmm (157-399) 08/24/23 02:56 MPV 9.5 fL (7.4-10.4) 08/24/23 02:56 Neut % (Auto) 64.6 % 08/24/23 02:56 Lymph % (Auto) 26.0 % 08/24/23 02:56 [place] % (Auto) 7.7 % 08/24/23 02:56 Eos % (Auto) 1.0 % 08/24/23 02:56 Baso % (Auto) 0.5 % 08/24/23 02:56 Neut # (Auto) 6.76 10^3/uL (1.8-7.7) 08/24/23 02:56 Lymph # (Auto) 2.7 10^3/uL (0.8-4.8) 08/24/23 02:56 [place] # (Auto) 0.8 10^3/uL (0.2-0.9) 08/24/23 02:56 Eos # (Auto) 0.1 10^3/uL (0.0-0.8) 08/24/23 02:56 Baso # (Auto) 0.1 10^3/uL (0.0-0.1) 08/24/23 02:56 Nucleated RBC % (auto) 0 % 08/24/23 02:56 Nucleated RBCs # 0.0 /100WBC 08/24/23 02:56 Sodium 138 mmol/L (136-145) 08/24/23 02:56 Potassium 3.3 mmol/L (3.5-5.1) L 08/24/23 02:56 Chloride 104 mmol/L (98-107) 08/24/23 02:56 Carbon Dioxide 23 mmol/L (22-29) 08/24/23 02:56 Anion Gap 14.3 (5-19) 08/24/23 02:56 BUN 13 mg/dL (6-20) 08/24/23 02:56 Creatinine 0.7 mg/dL (0.7-1.2) 08/24/23 02:56 GFR Calculation 121.4 mL/min (90-130) 08/24/23 02:56 Glucose 109 mg/dL (65-115) 08/24/23 02:56 Calculated Osmolality 287 mOsm/kg (285-295) 08/24/23 02:56 Lactate 2.7 mmol/L (0.5-2.2) H 08/23/23 17:19 Calcium 8.7 mg/dL (8.5-10.5) 08/24/23 02:56 Total Bilirubin 0.3 mg/dL (0.15-1.2) 08/23/23 17:19 AST 19 U/L (0-40) 08/23/23 17:19 ALT 21 U/L (0-41) 08/23/23 17:19 Alkaline Phosphatase 111 U/L (40-130) 08/23/23 17:19 Total Protein 7.7 g/dL (6.6-8.7) 08/23/23 17:19 Albumin 4.5 g/dL (3.5-5.2) 08/23/23 17:19 Globulin 3.2 g/dL (1.3-4.6) 08/23/23 17:19 Lipase 21 U/L (13-60) 08/23/23 17:19 Urine Color Colorless (Yellow) 08/24/23 00:56 Urine Appearance Clear (CLEAR) 08/24/23 00:56 Urine pH 5 (5-7) 08/24/23 00:56 Ur Specific [place] 1.005 (1.005-1.030) 08/24/23 00:56 Urine Protein Neg (Negative) 08/24/23 00:56 Urine Glucose (UA) Norm (Normal) 08/24/23 00:56 Urine Ketones Negative (Negative) 08/24/23 00:56 Urine Blood Neg (Negative) 08/24/23 00:56 Urine Nitrate Negative (Negative) 08/24/23 00:56 Urine Bilirubin Neg (Negative) 08/24/23 00:56 Urine Urobilinogen Norm mg/dL (Negative) 08/24/23 00:56 Ur Leukocyte Esterase Negative (Negative) 08/24/23 00:56 Vitals Last Vital Signs Temp 97.5 F L 08/24/23 12:40 Pulse 60 08/24/23 12:40 Resp 20 H 08/24/23 12:40 BP 129/82 08/24/23 12:40 Pulse Ox 98 08/24/23 12:40 O2 Del Method Room Air 08/24/23 12:40 Discharge Plan Discharge Patient Disposition: Home Condition: Stable Prescriptions: Continued albuterol sulfate [ProAir HFA] 90 mcg/actuation HFA aerosol inhaler 2 inh inhalation Q4H PRN (Reason: shortness of breath or wheezing) Qty: 6.7 0RF Vitamin D3 25 mcg (1,000 unit) Capsule 25 mcg PO DAILY turmeric 400 mg Capsule 400 mg PO DAILY Discontinued hydrochlorothiazide 25 mg Tablet 25 mg PO DAILY Discharge Orders: Discharge Order (Routine); Ordered 08/24/23 Ordered By: Main Cox Referrals: Kaitlin Camacho MD [Primary Care Provider] - (We have notified your physician's clinic of the need for a follow-up appointment to be scheduled. If you have not heard from them within the next 2 business days, please call them directly. ) Discharge Diet: As Directed and Clear Liquid Discharge Activity: Increase activity as tolerated Patient Instructions: Constipation - Adult, Bowel Obstruction (GEN) Activity Restrictions/Additional Instructions: Follow-up with your primary doctor for reassessment after partial small bowel obstruction as well as significant constipation. Please follow instructions as given by the surgeon, continue liquid diet, advance as tolerating, maintain low fiber diet. Ramp-up oral intake slowly/gradually. Avoid progression to constipation. Stop HCTZ for now, avoid dehydration. Do a lot of walking. Continue to monitor blood pressures as HCTZ is stopped for now in case blood pressure is becoming elevated over 140/85, please contact your primary doctor's office a different medication may need to be added in its stead, being mindful of avoiding risk of dehydration/constipation. Discharge Attestations Time Spent in Discharge Care*: greater than 30 min Quality Metrics Clinical Quality Measures [ No reported AMI, CVA or VTE this stay] Coding Level of Care Code 70627 Total time (in minutes) for Discharge: 45 Diagnoses Small bowel obstruction K56.609 Elevated BP without diagnosis of hypertension R03.0
== END 2023-08-24 15:01 | disposition home or self-care (01) ==
LOC: ER 17:31 → MEDSURG 19:28
PROVIDERS: Emergency Medicine; Admitting Provider Internal Medicine; Emergency Provider Family Medicine; PCP Family Medicine; Visit Provider Internal Medicine
DX: K56.609 Unspecified intestinal obstruction, unspecified as to partial versus complete obstruction (principal); R03.0 Elevated blood-pressure reading, without diagnosis of hypertension; E66.9 Obesity, unspecified; Z68.42 Body mass index [BMI] 45.0-49.9, adult; K42.9 Umbilical hernia without obstruction or gangrene; Z86.16 Personal history of COVID-19
CPT/HCPCS: 36415; 74019; 74176; 74177; 80048; 80053; 81003; 83605; 83690; 85025; 93005; 96365; 96366; 96372; 96375; 99285; G0378; J1200; J1644; J2270; J7030; Q9967

== ENCOUNTER → 2024-06-23 15:23 | Outpatient (BNVA) | payer OTHER, SELFPAY | PROVIDERS: PCP Family Medicine; Visit Provider Podiatrist Foot & Ankle Surgery | DX: M79.671 Pain in right foot (principal); M79.672 Pain in left foot; M92.61 Juvenile osteochondrosis of tarsus, right ankle; M92.62 Juvenile osteochondrosis of tarsus, left ankle; M76.61 Achilles tendinitis, right leg; M76.62 Achilles tendinitis, left leg | CPT/HCPCS: 73630; 99203 ==

== ENCOUNTER 2024-07-15 12:39 | Emergency (ER) | payer OTHER, SELFPAY ==
[2024-07-15 12:45] VITALS: BP 191/93; PULSE 59; TEMP 36.4; O2SAT 100; BMI 56.8
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
== END 2024-07-15 17:12 | disposition home or self-care (01) ==
PROVIDERS: Emergency Provider Physician Assistant; PCP Family Medicine
DX: S29.012A Strain of muscle and tendon of back wall of thorax, initial encounter (principal); V89.2XXA Person injured in unspecified motor-vehicle accident, traffic, initial encounter; Z87.891 Personal history of nicotine dependence
CPT/HCPCS: 70450; 72125; 72128; 99284

== ENCOUNTER 2024-12-16 17:03 | Emergency (ER) | payer OTHER, SELFPAY ==
--- OUTSIDE RECORDS SUMMARY | 2024-06-08 03:30 | XMS_ITS ---
Author Name [facility] Organization [facility] Address [address] [place] [address] Care Team Providers Care Elder Assistant Name Role Phone DARIUS FELIZ Primary Care Provider Unavailabl e Selected Encounter This section includes the information on record at [place] for the Encounter. Date/Time Encounter Type Encounter Description Reason Provider Source Jun 08, 2024 08:30 AM OFFICE O/P EST MOD 30 MIN PRIMARY CARE/MEDICINE ICD-10-CM I10 Essential (primary) hypertension HEMANTH WHITTEN Abdullahi Encounter Template Text not used by [place] Assessments - Encounter Diagnoses This section includes the primary and secondary diagnoses documented for the Encounter. Date/Time Primary/Secondary Diagnosis Diagnosis Name Provider Source Jun 24, 2024 02:06 PM PRIMARY Essential (primary) [facility] Jun 24, 2024 02:06 PM SECONDARY Hyperlipidemia, unspecified [facility] Jun 24, 2024 02:06 PM SECONDARY Morbid (severe) obesity due to excess calories HEMANTH WHITTEN [facility] Jun 24, 2024 02:06 PM SECONDARY Plantar fascial fibromatosis HEMANTH WHITTEN [facility] Jun 24, 2024 02:06 PM SECONDARY Polyp of colon [facility] Jun 24, 2024 02:06 PM SECONDARY Prediabetes HEMANTH WHITTEN [facility] Jun 24, 2024 02:06 PM SECONDARY Radiculopathy, lumbar region [facility] Jun 24, 2024 02:06 PM SECONDARY Vitamin D deficiency, unspecified HEMANTH WHITTEN [facility] Plan of Treatment: Future Appointments (+ 6 months) and Future Tests (+/- 45 days) The Plan of Treatment section includes future care activities for the [facility] This section includes future appointments and future orders which are active, pending or scheduled. Future Appointments This section includes appointments that were scheduled to occur 6 months from the date of the Encounter, up to a maximum of 20 appointments. The data comes from all [place] treatment facilities. Appointment Date/Time Appointment Type Appointme nt Facility Name Jun 23, 2024 03:30 PM AMBULATORY [place] [facility] Jul 02, 2024 08:30 AM AMBULATORY - [facility] [facility] Jul 02, 2024 08:31 AM AMBULATORY - MEDICINE [facility] Jul 22, 2024 12:30 PM AMBULATORY - [place] [facility] Jul 22, 2024 12:31 PM AMBULATORY - MEDICINE [facility] Aug 05, 2024 12:30 PM AM[facility]ULATORY - [place] [facility] Aug 05, 2024 12:31 PM AMBULATORY - MEDICINE [facility] Aug 12, 2024 12:15 PM AMBULATORY - MEDICINE [facility] Aug 12, 2024 12:30 PM AM[facility]ULATORY - [facility]IC[facility] [place] [facility] Aug 12, 2024 12:31 PM AMBULATORY - MEDICINE [facility] Aug 19, 2024 12:30 PM AMBULATORY - [facility]IC[facility] [place] [facility] Aug 19, 2024 12:31 PM AMBULATORY - MEDICINE [facility] Aug 26, 2024 12:30 PM AMBULATORY - MEDIC[facility] [place] [facility] Aug 26, 2024 12:31 PM AMBULATORY - MEDICINE [facility] Sep 09, 2024 12:30 PM AMBULATORY - [facility] [place] [facility] Sep 09, 2024 12:31 PM [facility] Sep 16, 2024 12:30 PM [facility] [place] [facility] Sep 16, 2024 12:31 PM [facility] [place] [facility] Sep 23, 2024 12:30 PM [facility] [place] [facility] Sep 23, 2024 12:31 PM AMBULATORY - MEDICINE [facility] Lab Results: +/- 30 days of the encounter This section includes the Chemistry and Hematology Lab Results on record with [place] for the patient. Radiology Reports and Pathology Reports are provided separately, in subsequent sections. Lab Results This section contains the Chemistry/Hematology Results that were resulted 30 days before or 30 daysafter the date of the Encounter. Date/Time Source Result Type Result - Unit Interpretation Reference Range Specimen Type Comment May 29, 2024 08:02 AM [facility] HGA1C BLOOD Specimen Type: BLOOD No comment entered. Ordering Provider: DARIUS FELIZ Report Released Date/Time: Jun 07, 2023 09:21 AM Reporting Lab: [place] [facility] [address] [place] [address] Performing Lab: [place] [facility] [address] [place] [address] HGA1C 6.2 H 4.0-6.0 May 29, 2024 08:02 AM [facility] CHOLESTEROL PANEL (PB) PLASMA Specimen Type: P LASMA No comment entered. Ordering Provider: DARIUS FELIZ Report Released Date/Time: Jun 07, 2023 09:21 AM Reporting Lab: [place] [facility] [address] [place] [address] Performing Lab: [place] [facility] [address] [place] [address] CHOLESTEROL 186 mg/dL 0-200 TRIGLYCERIDE 170 mg/dL H 0-150 CALCULATED LDL 117.6 mg/dL HDL(New) 34.4 mg/dL L >40 HDL % OF TOTAL CHOLESTEROL (PB) 18.5 >25 May 29, 2024 08:02 AM [facility] TSH (MA-PB) SERUM Specimen Typ e: SERUM No comment entered. Ordering Provider: DARIUS FELIZ Report Released Date/Time: Jun 07, 2023 09:21 AM Reporting Lab: [place] [facility] [address] [place] [address] Performing Lab: [place] [facility] [address] [place] [address] TSH 1.168 u[IU]/mL 0.47-5 May 29, 2024 08:02 AM [facility] COMPREHENSIVE METABOLIC PANEL PLASMA Specimen Type: PLASMA No comment entered. Ordering Provider: DARIUS FELIZ Report Released Date/Time: Jun 07, 2023 09:21 AM Reporting Lab: [place] [facility] [address] [place] [address] Performing Lab: [place] [facility] [address] [place] [address] CREATININE 0.80 mg/dL 0.7-1.3 UREA NITROGEN 13 mg/dL 9-25 GLUCOSE 101 mg/dL H 72-99 SODIUM 137 meq/L 136-145 POTASSIUM 4.4 meq/L 3.5-5 CHLORIDE 102 meq/L 98-107 CARBON DIOXIDE 25 meq/L 22-31 CALCIUM 9.3 mg/dL 8.4-10.4 PROTEIN 7.5 g/dL 6-8.6 ALBUMIN 4.2 g/dL 3.4-5 TOTAL BILIRUBIN 0.8 mg/dL 0.2-1.2 ALKALINE PHOSPHATASE 98 U/L 40-150 AST/SGOT 35 U/L H 5-34 ALT/SGPT 46 U/L H 8-40 EGFR (CKD-EPI 2020) 110 May 29, 2024 08:02 AM [facility] CBC BLOOD Specimen Type: BLOOD No comment entered. Ordering Provider: DARIUS FELIZ Report Released Date/Time: Jun 07, 2023 09:21 AM Reporting Lab: [place] [facility] [address] [place] [address] Performing Lab: [place] [facility] [address] [place] [address] WBC 7.7 10*3/uL 3.6-11.2 RBC 5.05 10*6/uL 4.10-5.70 HGB 14.6 g/dL 13.1-16.8 HCT 44.4 38.2-48.4 MCV 87.9 fL 80.0-100.0 MCH 28.9 pg 27.0-34.0 MCHC 32.9 g/dL L 33.0-36.0 PLT 331 10*3/uL 150-400 MPV 9.0 fL 7.5-11.2 RDW 13.6 11.8-15.1 LYMPHOCYTES, AUTO % 33.6 MONOCYTES, AUTO % 6.5 NEUTROPHILS, AUTO % 55.0 EOSINOPHILS, AUTO % 3.7 BASOPHILS, AUTO % 0.9 LYMPHOCYTES, ABSOLUTE 2.58 10*3/uL 0.77- 4.50 MONOCYTES, ABSOLUTE 0.50 10*3/uL 0.19-0. 8 NEUTROPHILS, ABSOLUTE 4.22 10*3/uL 2.10- 8.00 EOSINOPHILS, ABSOLUTE 0.28 10*3/uL 0.00- 0.60 BASOPHILS, ABSOLUTE 0.07 10*3/uL 0.00-0. 20 IMMATURE GRANS, AUTO % 0.3 IMMATURE GRANS, AUTO ABS 0.02 10*3/uL 0. 00-0.05 Radiology Reports: +/- 30 days of the encounter Radiology Reports For cases when an order for radiology services may have been completed prior to the date of the Encounter, the report list includes the Radiology Reports that were completed up to 30 days before dateof the Encounter. For cases when an order for radiology services may have been completed after the date of the Encounter, the report list also includes the Radiology Reports that were completed up to30 days after date of the Encounter. The data comes from all [place] treatment facilities. Date/Time Radiology Report Provider Source Jun 08, 2024 09:14 AM FOOT,LEFT 3 VIEWS OR MORE: AMARIS TIJERINA [id number] -1975 M Exm Date: JUN 08, 2024@09:14 Req Phys: HEMANTH WHITTEN Loc: PB-POC CVT [employer](PRO) (Req'g Loc) Img Loc: PB-XRAY [facility] Service: [place] [address] (Case [id number] COMPLETE) FOOT,LEFT 3 VIEWS OR MORE (RAD Detailed) CPT:18320 Proc Modifiers : LEFT Reason for Study: left foot pain Clinical History: Report Status: Verified Date Reported: JUN 08, 2024 Date Verified: JUN 08, 2024 Carton Counter Feeder E-Sig: Report: Left foot 3 views. No fracture or dislocation. No bony destruction. No significant degenerative changes. Spur posterior and plantar aspect calcaneus. Impression: Spur posterior and plantar aspect calcaneus Primary Interpreting Staff: PK MANCINI, RADIOLOGIST (Carton Counter Feeder, no e-sig) /PK Riley [facility] Jun 08, 2024 09:14 AM FOOT,RIGHT,3 VIEWS OR MORE: AMARIS TIJERINA [id number] -1975 M Exm Date: JUN 08, 2024@09:14 Req Phys: HEMANTH WHITTEN Pat Loc: PB-POC CVT [employer](PRO) (Req'g Loc) Img Loc: PB-XRAY [facility] Service: [place] [address] (Case [id number] COMPLETE) FOOT,RIGHT,3 VIEWS OR MORE (RAD Detailed) CPT:36257 Proc Modifiers : RIGHT Reason for Study: right foot pain Clinical History: Report Status: Verified Date Reported: JUN 08, 2024 Date Verified: JUN 08, 2024 Carton Counter Feeder E-Sig: Report: Right foot 3 views. No fracture or dislocation. No bony destruction. No significant degenerative changes. Spur posterior and plantar aspect calcaneus. Impression: Spur posterior and plantar aspect of the calcaneus Primary Interpreting Staff: PK MANCINI, RADIOLOGIST (Carton Counter Feeder, no e-sig) /PK Riley [facility] Encounter Notes: All associated encounter notes This section contains the clinical notes associated to the Encounter. Date/Time Encounter Note(s) Provider Source Jun 08, 2024 08:51 AM PRIMARY CARE PROGR ESS NOTE: LOCAL TITLE: PRIMARY CARE CLINIC PROGRESS NOTE PB STANDARD TITLE: PRIMARY CARE PROGRESS NOTE DATE OF NOTE: JUN 08, 2024@08:51 ENTRY DATE: JUN 08, 2024@08:51:25 AUTHOR: HEMANTH WHITTEN EXP COSIGNER: URGENCY: STATUS: COMPLETED SUBJECTIVE: AMARIS TIJERINA JR is a 49 y.o.MALE. HPI: [place] contacted via Telehealth appointment due to location/staffing limitations. Patient is located at the [facility] for this appointment, whereas [facility] affiliated provider is located off-site utilizing remotely secured video connection. Patient is being seen for an annual f/u apt. Last seen may 2022 for CC management; reports pain to bilateral heels. He has gained 60 plus pounds since last year. Denies any new problems or acute symptoms otherwise. Denies any other needs at this time. Non-[facility] Primary Care Provider none Specialty Services 1. none Problem List 1) HTN - Hypertension 2) Hyperlipidemia 3) Pain in left knee 4) Plantar fasciitis 5) Vitamin D Deficiency 6) Lumbar radiculopathy 7) Prediabetes 8) Morbid Obesity 9) Polyp Colon Active Outpatient Medications (including Supplies): No Medications Found Allergies: MORPHINE Review of Systems Systemic: Denies fatique, fever, chills, or weight loss CV: Denies chest pain, palpitations Pulm: Denies hemoptysis GI: Denies constipation, bloody stools. Musculo- skeletal: Denies swelling Neuro: Denies slurred speech Skin: Denies abnormal lesions; denies any new rashes PSYCH: Denies SI/HI OBJECTIVE: Vital Signs Temperature: 98.1 F [36.7 C] (06/08/2024 08:49) Respiratory Rate: 18 (06/08/2024 08:49) Pulse Rate: 61 (06/08/2024 08:49) Blood Pressure: 145/93 (06/08/2024 08:49) HT: 69 in [175.3 cm] (06/07/2023 09:09) WT: 397.2 lb [180.17 kg] (06/08/2024 08:49) BMI: 58.8 SPO2: 96% (06/08/2024 08:49) Vital Signs per chart to date and reviewed by signee. Physical Exam of heart and lungs completed by RN with reports of normal heart and lungs sounds; Lungs CTA APL, normal s1s2. General: NAD noted, A&Ox3, pleasant, appears stated age Neuro: Grossly intact Psych: Affect normal, answers questions appropriately throughout visit A/P: ASSESSMENT and PLAN Health Maintenance: Labs reviewed and discussed. labs overall look pretty good. A1C is a bit elevated at 6.2. LDL elevated at 117. Discussed preventative health to include diet/exercise, immunizations, and CRS. HTN - will start lisinopril. HLD- diet management. Hyperlipidemia-controlled on meds Right shoulder pain- no current issues Plantar fasciitis- worsening, will get bilateral x rays and place podiatry consult. Vit. D deficiency- on supplement LBP with sciatica- sees chiropractor rafael prn, stable Prediabetes- worsening, now 6.2. place move consult for diet management and possible adding glp1 therapy. Morbid Obesity- gained signifcant weight, will place move consult. Polyp Colon adenomatous-Next colonoscopy due 11/27/2024 Stable. Discussed health conditions listed above and medications with patient; med rec completed. Continue current regimen as prescribed by PCP and specialists. RTC as needed if developing any new or worsening symptoms. Please notify PACT with medication changes or for orders coordination as needed if seen by a specialist in the future. Will f/u with patient once updated labs / imaging / testing received; otherwise f/u as listed below. Follow-up: 12 months and/or as needed. All questions answered; agrees to plan of care. Follow up as listed above, annually, and as needed. Keep all appointments. Medications Reconciled. Time spent 30 minutes. Discussed with patient that in the event of community imaging / testing being ordered in the future, once the imaging / testing has been completed, please notify PACT of completion at outside facility if not called with results within 1 week by a [facility] member; this is due to intermittent lapses in notification of imaging completion within [facility]. Appointment was conducted via [employer] Video Connect, Video to home, or Telehealth via in-person interview within the local [place] [facility] as discussed in note above. VVC / Video to home / Telehealth via in-person interview appointment information: The following items were reviewed: - The nature of telehealth, its benefits, and risks. - Confidentiality and its limits. - The importance of having a confidential location for the service. - The emergency plan. - The appointment should be treated like an in person appointment (no smoking or driving during session, showing up fully dressed, etc.) *The Virtual Medical Room locked for this encounter (VVC or Video to home). *A survey of the environment was conducted and it is appropriate to conduct a CVT/VVC appointment. *Confirmed [place]'s Non-[facility] location for appointment (VVC or Video to home). *[place] was notified of right to decline Telehealth services and eligibility for other options. consented to be seen via CVT/VVC/Telehealth via in-person interview at local CBOC. EMERGENCY PLAN In the event of an emergency, the [place] or family will call emergency services, if capable. Teleprovider will remain in the virtual medical room until emergency response arrives and handoff to emergency services is complete. If [place] is unable to make emergency call, Teleprovider is to call the national E911 service at [phone] and ask to be connected to emergency services for the [place]'s location. Crisis Hotline: 498.827.7385 [employer] Help [employer]k (NTTHD): 380.888.1451 or [phone] Verified Provider's location and contact information for this appointment: Other [facility] or Remote from home // EN [facility] Signed: 06/08/2024 09:09 HEMANTH WHITTEN [facility]
--- OUTSIDE RECORDS SUMMARY | 2024-06-08 03:32 | XMS_ITS | Encounter Summary ---
Author Name [facility] Organization [facility] Address [address] [place] [address] Care Team Providers Care Service Writer Name Role Phone TRINI, DARIUS Primary Care Provider Unavailabl e Selected Encounter This section includes the information on record at ME for the Encounter. Date/Time Encounter Type Encounter Description Reason Provider Source Jun 08, 2024 08:32 AM TELEHEALTH FACILITY FEE PRIMARY CARE/MEDICINE ICD-10-CM I10 Essential (primary) hypertension DESIREE POST Abdullahi Encounter Template Text not used by ME Assessments - Encounter Diagnoses This section includes the primary and secondary diagnoses documented for the Encounter. Date/Time Primary/Secondary Diagnosis Diagnosis Name Provider Source Jun 24, 2024 02:07 PM PRIMARY Essential (primary) hypertension NIKOLE POST [facility] Plan of Treatment: Future Appointments (+ 6 months) and Future Tests (+/- 45 days) The Plan of Treatment section includes future care activities for the patient from all ME treatmentfacilities. This section includes future appointments and future orders which are active, pending or scheduled. Future Appointments This section includes appointments that were scheduled to occur 6 months from the date of the Encounter, up to a maximum of 20 appointments. The data comes from all ME treatment facilities. Appointment Date/Time Appointment Type Appointme nt Facility Name Jun 23, 2024 03:30 PM AM[facility]UL[facility] [place] [facility] Jul 02, 2024 08:30 AM [facility] [place] [facility] Jul 02, 2024 08:31 AM [facility] Jul 22, 2024 12:30 PM [facility] [place] [facility] Jul 22, 2024 12:31 PM [facility] Aug 05, 2024 12:30 PM [facility] [place] [facility] Aug 05, 2024 12:31 PM [facility] [place] [facility] [facility] Aug 12, 2024 12:15 PM [facility] Aug 12, 2024 12:30 PM [facility] [place] [facility] Aug 12, 2024 12:31 PM [facility] Aug 19, 2024 12:30 PM [facility] [place] [facility] Aug 19, 2024 12:31 PM [facility] Aug 26, 2024 12:30 PM [facility] [place] [facility] Aug 26, 2024 12:31 PM [facility] Sep 09, 2024 12:30 PM [facility] [place] [facility] Sep 09, 2024 12:31 PM [facility] Sep 16, 2024 12:30 PM [facility] [place] [facility] Sep 16, 2024 12:31 PM [facility] Sep 23, 2024 12:30 PM [facility] [place] [place] [facility] Sep 23, 2024 12:31 PM [facility] Lab Results: +/- 30 days of the encounter This section includes the Chemistry and Hematology Lab Results on record with ME for the patient. Radiology Reports and Pathology Reports are provided separately, in subsequent sections. Lab Results This section contains the Chemistry/Hematology Results that were resulted 30 days before or 30 daysafter the date of the Encounter. Date/Time Source Result Type Result - Unit Interpretation Reference Range Specimen Type Comment May 29, 2024 08:02 AM [facility] HGA1C BLOOD Specimen Type: BLOOD No comment entered. Ordering Provider: DARIUS FELIZ Report Released Date/Time: Jun 07, 2023 09:21 AM Reporting Lab: [place] [facility] [address] [place] [address] Performing Lab: [place] [facility] [address] [place] [address] HGA1C 6.2 H 4.0-6.0 May 29, 2024 08:02 AM [facility] CHOLESTEROL PANEL (PB) PLASMA Specimen Type: P LASMA No comment entered. Ordering Provider: DARIUS FELIZ Report Released Date/Time: Jun 07, 2023 09:21 AM Reporting Lab: [place] [facility] [address] [place] [address] Performing Lab: [place] [facility] [address] [place] [address] CHOLESTEROL 186 mg/dL 0-200 TRIGLYCERIDE 170 mg/dL H 0-150 CALCULATED LDL 117.6 mg/dL HDL(New) 34.4 mg/dL L >40 HDL % OF TOTAL CHOLESTEROL (PB) 18.5 >25 May 29, 2024 08:02 AM [facility] TSH (MA-PB) SERUM Specimen Typ e: SERUM No comment entered. Ordering Provider: DARIUS FELIZ Report Released Date/Time: Jun 07, 2023 09:21 AM Reporting Lab: [place] [facility] [address] [place] [address] Performing Lab: [place] [facility] [address] [place] [address] TSH 1.168 u[IU]/mL 0.47-5 May 29, 2024 08:02 AM [facility] COMPREHENSIVE METABOLIC PANEL PLASMA Specimen Type: PLASMA No comment entered. Ordering Provider: DARIUS FELIZ Report Released Date/Time: Jun 07, 2023 09:21 AM Reporting Lab: [place] [facility] [address] [place] [address] Performing Lab: [place] [facility] [address] [place] [address] CREATININE 0.80 mg/dL 0.7-1.3 UREA NITROGEN 13 [...] 2020) 110 May 29, 2024 08:02 AM [facility] CBC BLOOD Specimen Type: BLOOD No comment entered. Ordering Provider: DARIUS FELIZ Report Released Date/Time: Jun 07, 2023 09:21 AM Reporting Lab: [place] [facility] [address] [place] [facility] [address] Performing Lab: [place] [facility] [address] [place] [facility] [address] WBC 7.7 10*3/uL 3.6-11.2 RBC 5.05 10*6/uL [...] GRANS, AUTO ABS 0.02 10*3/uL 0. 00-0.05 Vital Signs: All taken on the encounter date This section contains inpatient and outpatient Vital Signs collected on the date of the Encounter. Date/Time Temperature Pulse Blood Pressure Respiratory Rate SP02 Pain Height Weight Body Mass Index Source Jun 08, 2024 08:51 AM 62 145/94 98 [facility] Jun 08, 2024 08:49 AM 98.1 61 145/93 18 96 2 397.2 59 [facility] Social History: Smoking Status (Most current) and Tobacco Use (All prior to encounter date) This section includes the most current, and the historical, smoking and tobacco- related health factors from the ME facility where the Encounter took place. Current Smoking Status This section includes the most current smoking, or tobacco-related health factor, from the ME facility where the Encounter took place. Date/Time Current Smoking Status Comment Facil ity Jun 08, 2024 08:32 AM VA-TOBACCO USE FORMER CIGARETTES [facility] Tobacco Use History This section includes a history of the smoking, or tobacco-related health factors, that were collected on or before the date of the Encounter. The data comes from the ME facility where the Encounter took place. Date/Time Smoking Status/Tobacco Use Comment F acility Jun 08, 2024 08:32 AM VA-TOBACCO USE FORMER CIGARETTES [facility] Jun 07, 2023 09:00 AM VA-TOBACCO FORMER USER [facility] Jun 07, 2023 09:00 AM VA-TOBACCO QUIT 15 YRS OR MORE [facility] Jun 08, 2022 08:30 AM VA-TOBACCO FORMER USER [facility] Jun 08, 2022 08:30 AM VA-TOBACCO QUIT 15 YRS OR MORE [facility] Jun 08, 2021 08:30 AM VA-TOBACCO FORMER USER [facility] Jun 08, 2021 08:30 AM VA-TOBACCO QUIT 15 YRS OR MORE [facility] Jun 13, 2020 08:30 AM VA-TOBACCO FORMER USER [facility] Jun 13, 2020 08:30 AM VA-TOBACCO QUIT 5 TO < 15 YRS [facility] Dec 27, 2017 09:37 AM VA-TOBACCO FORMER USER [facility] Dec 27, 2017 09:37 AM VA-TOBACCO QUIT 5 TO < 15 YRS [facility] October 21, 2013 10:10 AM QUIT TOBACCO >7 YEARS AGO [facility] Jul 23, 2008 08:43 AM QUIT TOBACCO IN THE LAST 12 YUSEF HS [facility] Jul 04, 2007 02:21 PM CURRENT TOBACCO USER [facility] Jul 04, 2007 02:21 PM TOBACCO OFFERED STOP SMOKING CLI JUMA [facility] Radiology Reports: +/- 30 days of the [...] the Encounter. The data comes from all ME treatment facilities. Date/Time Radiology Report Provider Source Jun 08, 2024 09:14 AM FOOT,LEFT 3 VIEWS OR MORE: AMARIS TIJERINA [id number] -[id number] M Exm Date: JUN 08, 2024@09:14 Req Phys: HEMANTH WHITTEN Loc: PB-POC CVT HOME CARE COORDINATOR(PRO) (Req'g Loc) Img Loc: PB-XRAY [place] Service: [place] [address] (Case [id number] COMPLETE) FOOT,LEFT 3 VIEWS OR MORE (RAD Detailed) CPT:35071 Proc Modifiers : LEFT Reason for Study: left foot pain Clinical History: Report Status: Verified Date Reported: JUN 08, 2024 Date Verified: JUN 08, 2024 Research Agricultural Engineer E-Sig: Report: Left foot 3 views. No fracture or dislocation. No bony destruction. No significant degenerative changes. Spur posterior and plantar aspect calcaneus. Impression: Spur posterior and plantar aspect calcaneus Primary Interpreting Staff: PK MANCINI, RADIOLOGIST (Research Agricultural Engineer, no e-sig) /PK Riley [facility] Jun 08, 2024 09:14 AM FOOT,RIGHT,3 VIEWS OR MORE: AMARIS TIJERINA [id number] -[id number] M Exm Date: JUN 08, 2024@09:14 Req Phys: HEMANTH WHITTEN Loc: PB-POC CVT HOME CARE COORDINATOR(PRO) (Req'g Loc) Img Loc: PB-XRAY [place] Service: Unknown [place] [address] (Case [id number] COMPLETE) FOOT,RIGHT,3 VIEWS OR MORE (RAD Detailed) CPT:47017 Proc Modifiers : RIGHT Reason for Study: right foot pain Clinical History: Report Status: Verified Date Reported: JUN 08, 2024 Date Verified: JUN 08, 2024 Research Agricultural Engineer E-Sig: Report: Right foot 3 views. No fracture or dislocation. No bony destruction. No significant degenerative changes. Spur posterior and plantar aspect calcaneus. Impression: Spur posterior and plantar aspect of the calcaneus Primary Interpreting Staff: PK MANCINI, RADIOLOGIST (Research Agricultural Engineer, no e-sig) /PK Riley [facility] Encounter Notes: All associated encounter notes This section contains the clinical notes associated to the Encounter. Date/Time Encounter Note(s) Provider Source Jun 08, 2024 08:30 AM PRIMARY CARE NURSING NOTE: LOCAL TITLE: PRIMARY CARE NURSING PROGRESS NOTE (TEXT) NURSING P STANDARD TITLE: PRIMARY CARE NURSING NOTE DATE OF NOTE: JUN 08, 2024@08:30 ENTRY DATE: JUN 08, 2024@08:30:35 AUTHOR: BRADLEY POST COSIGNER: URGENCY: STATUS: COMPLETED PRIMARY CARE NURSING PROGRESS NOTE (TEXT) NURSING PB Has ADDENDA Established Patient AMARIS TIJERINA JR IS A 49 YEAR OLD MALE BEING SEEN IN CLINIC JUN 08, 2024. REASON FOR VISIT: Annual visit, pain in bilateral heals, the back of the heals from the sole of the feet about 2 inches up the back of the foot, hurts to touch or put pressure on the area. Discussed diet and exercise, looking you YouTube for a chair exercise program and getting back on his diet. Auscultated the 's lungs, lungs are clear throughout, heart sounds are good. Are you receiving care anywhere other than the [facility]? No HEALTH AND SURGICAL HISTORY: Does patient report using home oxygen? No CURRENT ACTIVE MEDICATIONS FOR REVIEW: Allergies/ADRs (Tool #5) FACILITY ALLERGY/ADR -------- SANTANA MATHIS CLEOPATRA NO KNOWN ALLERGIES [facility] Med. Reconciliation (Tool #1) INCLUDED IN THIS LIST: Alphabetical list of active outpatient prescriptions dispensed from this ME (local) and dispensed from another ME or [facility] facility (remote) as well as inpatient orders (local pending and active), local clinic medications, locally documented non-VA medications, and local prescriptions that have or been discontinued in the past 90 days. Non-VA Meds Last Documented On: Data not found NOTE The display of VA prescriptions dispensed from another ME or [facility] facility (remote) is limited to active outpatient prescription entries matched to National Drug File at the originating site and may not include some items such as investigational drugs, compounds, etc. NOT INCLUDED IN THIS LIST: Medications self-entered by the patient into personal health records (i.e. [employer]) are NOT included in this list. Non-VA medications documented outside this ME, remote inpatient orders (regardless of status) and remote clinic medications are NOT included in this list. The patient and provider must always discuss medications the patient is taking, regardless of where the medication was dispensed or obtained. OUTPT HYDROCHLOROTHIAZIDE 25MG TAB (Status = ) TAKE ONE TABLET BY MOUTH ONCE A DAY FOR HIGH BLOOD PRESSURE Rx# [id number] Last Released: 06/08/23 Qty/Days Supply: Rx Expiration Date: 06/07/24 Refills Remainin Indication: FOR HIGH BLOOD PRESSURE SUPPLIES PHARMACY TERMS AND POSSIBLE PATIENT ACTIONS INPT = ME inpatient order IV = ME intravenous medication OUTPT = ME outpatient prescription PHARMACY POSSIBLE PATIENT TERMS EXPLANATION ACTIONS -------- -- ACTIVE A prescription that can be If you have refills, filled at the local ME pharmacy. you may request a refill of this prescription from your ME pharmacy. CLINIC A medication you received during If you have questions a visit to a ME clinic or about this medication emergency department. contact your ME healthcare team. DISCONTINUED A prescription your provider has Contact your ME stopped. It is no longer healthcare team if you available to be sent to you or need more of this picked up at the ME pharmacy medication. window. A prescription which is too old Contact your VA to fill. This does not refer to healthcare team if you the expiration date of the need more of this medication in the container. medication. NON-VA A medication that came from If this medication someplace other than a VA information is pharmacy. This may be a incorrect or out of prescription from either the VA date, please tell your or non VA providers that was ME healthcare team. filled outside the VA. Or, it may be an nooi-ffd-yccwvwc (OTC), herbal, dietary supplements or sample medication. ON HOLD An active prescription that will Contact your VA not be filled until pharmacy pharmacy when you need resolves the issue. more of this medication. PARKED An active prescription that will Contact your VA not be filled until the patient pharmacy when you need requests it. this medication. PENDING This prescription order has been If you have been sent to the pharmacy for review instructed to start and is not ready yet. this medication now, contact your VA pharmacy. SUSPENDED An active prescription that is Contact your VA not scheduled to be filled yet. pharmacy if you need You should receive it before this medication now. you run out. ====== Patient reports taking meds other than as [place] has not taken his HCTZ in a couple of months. IS PATIENT TAKING ANY OVER THE COUNTER MEDICATIONS, SUCH VITAMINS OR HERBAL SUPPLEMENTS, INCLUDING ANY MEDICATIONS PRESCRIBED BY ANOTHER PHYSICIAN? No ALLERGIES/ADVERSE REACTIONS: MORPHINE Does patient have any new allergies to report since last visit? NO VITALS: TEMPERATURE: 97.4 F [36.3 C] (09/13/2023 09:20) BP: 130/68 (09/13/2023 09:30) RESP: 19 (09/13/2023 09:20) PULSE: 56 (09/13/2023 09:20) HT: 69 in [175.3 cm] (06/07/2023 09:09) WT: 344.5 lb [156.26 kg] (09/13/2023 09:20) BMI: 51.0 PAIN ASSESSMENT: (Most Recent Pain Score in Vitals Package: 0 (06/07/2023 09:09) ) The patient indicated that they and their close contacts have not traveled outside of the [place] in the past 21 days. The patient reports the following symptoms: No symptoms present The patient is not immunocompromised. The patient does not report having a history of Multi Drug Resistant Organism (MDRO) within the last five years. The patient does not report having been exposed to measles, chickenpox, or zoster in last 30 days. STRESS: Thank you for your service. Now let us serve you. At the [facility], we strive to provide you with exceptional health care that improves your health and well-being. Are you feeling sad, empty, or depressed? No Do you need to talk about things in your life that worry you or cause you stress? No Do you need to talk about personal problems, family problems, alcohol use, drug use, or mental or emotional illness? No SUICIDE SCREENING: The patient was asked, Over the past two weeks, how often have you been bothered by thoughts that you would be better off or of hurting yourself in some way? Not At All SPIRITUAL ASSESSMENT: Are there hinduism practices or spiritual concerns you want the divemaster, your physician, and other health care team members to immediately know about? No Patient advised to call the clinic for any concerns, questions, or symptoms. Patient and/or caregiver verbalized understanding of plan of care. Suicide Screen - V: C-SSRS Screening [place] Suicide Severity Rating Scale (C-SSRS) screener 1. Over the past month, have you wished you were or wished you could go to sleep and not wake up? No 2. Over the past month, have you had any actual thoughts of killing yourself? No 3. Over the past month, have you been thinking about how you might do this? Response not required due to responses to other questions. 4. Over the past month, have you had these thoughts and had some intention of acting on them? Response not required due to responses to other questions. 5. Over the past month, have you started to work out or worked out the details of how to kill yourself? Response not required due to responses to other questions. 6. If yes, at any time in the past month did you intend to carry out this plan? Response not required due to responses to other questions. 7. In your lifetime, have you ever done anything, started to do anything, or prepared to do anything to end your life (for example, collected pills, obtained a gun, gave away valuables, went to the roof but didn't jump)? No 8. If YES, was this within the past 3 months? Response not required due to responses to other questions. Depression Screening - V: Perform PHQ-2 A PHQ-2 screen was performed. The score was 0 which is a negative screen for depression. Over the past two weeks, how often have you been bothered by the following problems? 1. Little interest or pleasure in doing things Not at all 2. Feeling down, depressed, or hopeless Not at all RHS Screen - VS: RHS Screen Session Format: Face to Face Environmental Check Upon inquiry, the individual reports that the environment is safe to proceed. Informed Consent to Screen and Document The individual consents to proceed with screening. The individual consents to documentation of responses. PRIMARY SCREEN: In the past 12 months, how often did a current or former intimate partner (e.g., boyfriend, girlfriend, , , sexual partner): 1. Scream or curse at you Never 2. Insult or talk down to you Never 3. Threaten you with harm Never 4. Physically hurt you Never 5. Force or pressure you to have sexual contact against your will, or when you were unable to say no Never The HITS tool (items 1-4 above) is [place] copyright protected by Julio Cesar Katz MD, and the user has full rights to use it throughout the ME system. PRIMARY SCREEN RESULT: The Primary Screen is NEGATIVE. The individual answered never to all forms of IPV above (i.e., answered never to all 5 items) The individual accepts education and/or resources: Other: not needed EDUCATION: Other: not needed COVID-19 Immunization - L,N,P,PH,U: Refused Moderna Monovalent COVID-19 vaccine Immunization: COVID-19 (MODERNA), MRNA, LNP-S, PF, 50 MCG/0.5 ML (AGES 12+ YEARS) Refusal Reason: PATIENT DECISION Patient refuses all immunization(s) in the COVID-19 group Date Documented: 06/08/24 09:02 Alcohol Use Screen (AUDIT-C) - V: Alcohol Screen: SCREEN FOR ALCOHOL (AUDIT-C) An alcohol screening test (AUDIT-C) was negative (score=0). 1. How often did you have a drink containing alcohol in the past year? Consider a drink to be a 12 ounce can or bottle of regular beer, 8 ounces of malt liquor, a 5 ounce glass of table wine, or a 1.5 ounce shot of liquor (like scotch, gin, or vodka). Never 2. How many drinks containing alcohol did you have on a typical day when you were drinking in the past year? Response not required due to responses to other questions. 3. How often did you have six or more drinks on one occasion in the past year? Response not required due to responses to other questions. Tobacco Use Screening - AT,DE,L,M,N,P,PH,PS,RT,S,U: The patient is a former cigarette smoker. The patient has never used other types of tobacco. Advanced Directive Screen/Training Development Director: ADVANCE DIRECTIVE SCREENING: I asked if the patient has an advance directive, and determined that: Patient does not have an Advance Directive. Patient was given form to update and return when completed. ADVANCE DIRECTIVE NOTIFICATION I provided the patient with written notification about advance directives. Level of understanding: Good Influenza Immunization - L,N,P,PH,U: Deferral / Refusal The patient declines to receive the recommended dose of seasonal influenza vaccine. Immunization: INFLUENZA, UNSPECIFIED FORMULATION Refusal Reason: PATIENT DECISION Patient refuses all immunization(s) in the FLU group Date Documented: 06/08/24 09:03 MOVE Weight Management: Most recent BMI: 58.8. educated on health risk of obesity and treatment is offered. Participation in a weight management program was considered/offered for this patient based on the current BMI score. Pain Assessment: - PAIN ASSESSMENT: .. Patient is reporting some pain. PAIN SCORE TODAY: 2 Patient's self identified pain goal: 0 Weight Control/Nutrition Counseling: * Patient declined nutrition and weight screen counseling at this encounter. Patient/Nurse Interview: * * Patient stated that adequate information was received regarding the condition and/or treatment. Comment: If you have any questions please call the clinic [facility] MAP: PERSONAL HEALTH PLAN INVENTORY & MAP [place] Response: Peace and quiet /es/ Bradley Post, RN,LAURYN Almaraz Signed: 06/08/2024 09:06 06/08/2024 ADDENDUM STATUS: COMPLETED Per [facility] Directive 1605.06, wristband documentation: Patient wristband was removed and destroyed by (staff name) Catrachita Post RN and placed in the designated [employer] bin. /adelia/ Bradley Post RN,LAURYN Almaraz Signed: 06/08/2024 09:07 06/08/2024 ADDENDUM STATUS: COMPLETED MOVE Weight Management: Most recent BMI: 58.8. educated on health risk of obesity and treatment is offered. Participation in a weight management program was considered/offered for this patient based on the current BMI score. Patient is interested in a weight management program. There are NO CONTRAINDICATIONS identified for this patient that would prohibit participation in the [facility] MOVE Program or a non-VA weight management program. Order for consult is being placed. /adelia/ Bradley Post RN,LAURYN Almaraz Signed: 06/08/2024 10:42 BRADLEY POST
--- OUTSIDE RECORDS SUMMARY | 2024-08-05 07:30 | XMS_ITS ---
Author Name [facility] [place] [facility] [place] [facility] [place] [facility] [place] Address [address] [place] [address] Care Team Providers Care Puppet Master Name Role Phone TRINI DARIUS Primary Care Provider Unavailabl e Selected Encounter This section includes the information on record at [place] for the Encounter. Date/Time Encounter Type Encounter Description Reason Provider Source Aug 05, 2024 12:30 PM [facility] EA ADDL WEIGHT MGMT & MOVE! PROG - GRP ICD-10-CM E66.813 Obesity, class 3 KRYSTLE WESTON Abdullahi Encounter Template Text not used by [place] Assessments - Encounter Diagnoses This section includes the primary and secondary diagnoses documented for the Encounter. Date/Time Primary/Secondary Diagnosis Diagnosis Name Provider Source Aug 05, 2024 02:56 PM PRIMARY Obesity, class 3 KRYSTLE WESTON [facility] Aug 05, 2024 02:56 PM SECONDARY Body mass index [BMI] 50.0-59.9, adult KRYSTLE WESTON [facility] Plan of Treatment: Future Appointments (+ 6 months) and Future Tests (+/- 45 days) The Plan of Treatment section includes future care activities for the patient from all [place] [facility]. This section includes future appointments and future orders which are active, pending or scheduled. Future Appointments This section includes appointments that were scheduled to occur 6 months from the date of the Encounter, up to a maximum of 20 appointments. The data comes from all [place] treatment facilities. Appointment Date/Time Appointment Type Appointme nt Facility Name Aug 12, 2024 12:15 PM [facility]UL[facility]ORY [facility]INE [facility] Aug 12, 2024 12:30 PM [facility] [facility] Aug 12, 2024 12:31 PM [facility]UL[facility]ORY - MEDICINE [facility] Aug 19, 2024 12:30 PM [facility] [place] [facility] Aug 19, 2024 12:31 PM [facility]ORY - MEDICINE [facility] Aug 26, 2024 12:30 PM [facility] [place] [facility] Aug 26, 2024 12:31 PM AM[facility]ULATORY - MEDICINE [facility] Sep 09, 2024 12:30 PM [facility] [place] [facility] Sep 09, 2024 12:31 PM [facility]ULATORY - MEDICINE [facility] Sep 16, 2024 12:30 PM [facility] [place] [facility] Sep 16, 2024 12:31 PM [facility]UL[facility]ORY - MEDICINE [facility] Sep 23, 2024 12:30 PM [facility] [place] [facility] Sep 23, 2024 12:31 PM [facility]UL[facility]ORY - MEDICINE [facility] Sep 30, 2024 12:30 PM [facility] [place] [facility] Sep 30, 2024 12:31 PM AM[facility]UL[facility]ORY - MEDICINE [facility] Oct 07, 2024 12:30 PM [facility] [place] Oct 07, 2024 12:31 PM [facility]UL[facility]ORY - MEDICINE [facility] Nov 20, 2024 03:00 PM [facility] - [facility] [place] [facility] Encounter Notes: All associated encounter notes This section contains the clinical notes associated to the Encounter. Date/Time Encounter Note(s) Provider Source Aug 05, 2024 02:48 PM MOVE GROUP BOILER OPERATOR ING NOTE: LOCAL TITLE: WEIGHT MGMT/MOVE! Opt Group Note STANDARD TITLE: MOVE GROUP COUNSELING NOTE DATE OF NOTE: AUG 05, 2024@14:48 ENTRY DATE: AUG 05, 2024@14:48:17 AUTHOR: KRYSTLE WESTON EXP COSIGNER: URGENCY: STATUS: COMPLETED MOVE! Comprehensive Lifestyle Intervention (CLI) ASSESSMENT: BMI Assessment: Height: 69 in [175.3 cm] (06/07/2023 09:09) Weight: Measurement DT WEIGHT LB(KG)[BMI] 08/05/2024 12:42 384.4(174.36)[57*] 07/22/2024 12:36 382.1(173.32)[57*] 07/02/2024 08:32 385.1(174.68)[57*] MOVE! Program Starting Date: 07/02/2024 MOVE! Weight Management Starting Date 07/02/24 MOVE! Program Starting Weight: 07/02/2024 MOVE! Weight Management Program Starting Weight (Lbs) 385.1 Session Modality: Group session agreed to participate in group intervention and to respect the privacy of all persons who attended the session. [place] was one of 9 group members to attend. Facilitated by: ADINA Taylor Delivery Method: Synchronous Video Visit conducted by [employer] teleCannae. verbal consent obtained. Location/emergency number confirmed. Environment surveyed and all participants identified. Virtual conference room locked. Patient location during visit: [place] Facility: [facility] Best contact number for backup/emergency communication with patient: Length of Session (minutes): 47 Reason for Encounter: Obesity, Class 3-BMI greater than 40 INTERVENTION: The participated in a comprehensive lifestyle intervention utilizing the MOVE! Workbook and Shovel Log Loader Operator Guide. The [place] was engaged in a whole health approach that supported their mission, aspiration and purpose. The [place] was assisted to develop the knowledge, skills and confidence needed to effectively self-manage their weight. Discussed 's SMART goals. New Smart Goals Goal 1: Description: [place] will keep a specific list of dietary intake at least one day over the next week. Goal 2: Description: [place] will achieve 30 minutes of physical activity over the next week. Education was provided during the session. MOVE! Workbook Level of Engagement: Full engagement; actively listening/participates in discussion/questions [place] level of understanding of education received: Full understanding; Demonstrates/verbalizes through [employer] WEIGHT MANAGEMENT SESSIONS: Maintain Your Progress: Discussion Topics: Maintaining Your Weight Loss Staying Motivated Weight Management Toolkit Goal-Setting Check-Out MONITORING & EVALUATION The was asked to measure and record body weight regularly and record all food intake and physical activity in a log. was encouraged to review the MOVE! [place] Workbook materials. Follow-up: MOVE! Group Session /adelia/ KRYSTLE WESTON CLINICAL DIETITIAN Signed: 08/05/2024 14:56 KRYSTLE WESTON [facility]
--- OUTSIDE RECORDS SUMMARY | 2024-08-05 07:31 | XMS_ITS | Encounter Summary ---
Author Name [facility] [place] [facility] [place] [place] [facility] [place] Address [address] [place] [address] Care Team Providers Care Refrigeration Engine Operator Name Role Phone TRINI DARIUS Primary Care Provider Unavailabbi e Selected Encounter This section includes the information on record at [place] for the Encounter. Date/Time Encounter Type Encounter Description Reason Provider Source Aug 05, 2024 12:31 PM [facility] FEE WEIGHT MGMT & MOVE! PROG - GRP ICD-10-CM E66.813 Obesity, class 3 KATH WESTON [facility] Encounter Template Text not used by [place] Assessments - Encounter Diagnoses This section includes the primary and secondary diagnoses documented for the Encounter. Date/Time Primary/Secondary Diagnosis Diagnosis Name Provider Source Aug 05, 2024 03:09 PM PRIMARY Obesity, class 3 RKYSTLE WESTON [facility] Aug 05, 2024 03:09 PM SECONDARY Body mass index [BMI] 50.0-59.9, adult KRYSTLE WESTON [facility] Plan of Treatment: Future Appointments (+ 6 months) and Future Tests (+/- 45 days) The Plan of Treatment section includes future care activities for the patient from all [facility] treatment[facility]ilities. This section includes future appointments and future orders which are active, pending or scheduled. Future Appointments This section includes appointments that were scheduled to occur 6 months from the date of the Encounter, up to a maximum of 20 appointments. The data comes from all [facility] facilities. Appointment Date/Time Appointment Type Appointme nt Facility Name Aug 12, 2024 12:15 PM AMBULATORY - MEDICINE [facility] Aug 12, 2024 12:30 PM [facility] [facility] Aug 12, 2024 12:31 PM AMBULATORY - MEDICINE [facility] Aug 19, 2024 12:30 PM [facility] [facility] Aug 19, 2024 12:31 PM AMBULATORY - MEDICINE [facility] Aug 26, 2024 12:30 PM [facility] [facility] Aug 26, 2024 12:31 PM AMBULATORY - MEDICINE [facility] Sep 09, 2024 12:30 PM [facility] [facility] Sep 09, 2024 12:31 PM AMBULATORY - MEDICINE [facility] Sep 16, 2024 12:30 PM [facility] [facility] Sep 16, 2024 12:31 PM AMBULATORY - MEDICINE [facility] Sep 23, 2024 12:30 PM [facility] [facility] Sep 23, 2024 12:31 PM AMBULATORY - MEDICINE [facility] Sep 30, 2024 12:30 PM [facility] [facility] Sep 30, 2024 12:31 PM AMBULATORY - MEDICINE [facility] Oct 07, 2024 12:30 PM [facility] [facility] Oct 07, 2024 12:31 PM AMBULATORY - MEDICINE [facility] Nov 20, 2024 03:00 PM [facility] [facility] Vital Signs: All taken on the encounter date This section contains inpatient and outpatient Vital Signs collected on the date of the Encounter. Date/Time Temperature Pulse Blood Pressure Respiratory Rate SP02 Pain Height Weight Body Mass Index Source Aug 05, 2024 12:42 PM 384.4 57 [facility] Social History: Smoking Status (Most current) and Tobacco Use (All prior to encounter date) This section includes the most current, and the historical, smoking and tobacco- related health factors from the [place] facility where the Encounter took place. Current Smoking Status This section includes the most current smoking, or tobacco-related health factor, from the [place] facility where the Encounter took place. Date/Time Current Smoking Status Comment Facil ity Jun 08, 2024 08:32 AM VA-TOBACCO USE FORMER CIGARETTES [facility] Tobacco Use History This section includes a history of the smoking, or tobacco-related health factors, that were collected on or before the date of the Encounter. The data comes from the [place] facility where the Encounter took place. Date/Time Smoking Status/Tobacco Use Comment F acility Jun 08, 2024 08:32 AM VA-TOBACCO USE FORMER CIGARETTES [facility] Jun 07, 2023 09:00 AM VA-TOBACCO FORMER USER [facility] Jun 07, 2023 09:00 AM VA-TOBACCO QUIT 15 YRS OR MORE [facility] Jun 08, 2022 08:30 AM VA-TOBACCO FORMER USER [facility] Jun 08, 2022 08:30 AM VA-TOBACCO QUIT 15 YRS OR MORE [facility] Jun 08, 2021 08:30 AM VA-TOBACCO FORMER USER [facility] Jun 08, 2021 08:30 AM VA-TOBACCO QUIT 15 YRS OR MORE [facility] Jun 13, 2020 08:30 AM VA-TOBACCO FORMER USER [facility] Jun 13, 2020 08:30 AM VA-TOBACCO QUIT 5 TO < 15 YRS [facility] Dec 27, 2017 09:37 AM VA-TOBACCO FORMER USER [facility] Dec 27, 2017 09:37 AM VA-TOBACCO QUIT 5 TO < 15 YRS [facility] October 21, 2013 10:10 AM QUIT TOBACCO >7 YEARS AGO [facility] Jul 23, 2008 08:43 AM QUIT TOBACCO IN THE LAST 12 YUSEF HS [facility] Jul 04, 2007 02:21 PM CURRENT TOBACCO USER [facility] Jul 04, 2007 02:21 PM TOBACCO OFFERED STOP SMOKING CLI [facility]
--- OUTSIDE RECORDS SUMMARY | 2024-08-12 07:15 | XMS_ITS | Encounter Summary ---
Author Name [facility] [place] Organization [facility] [place] Address [address] [place] [address] Care Team Providers Care Corporate Trainer Name Role Phone KAITLIN CAMACHO Primary Care Provider Unavailabl e Selected Encounter This section includes the information on record at NH for the Encounter. Date/Time Encounter Type Encounter Description Reason Provider Source Aug 12, 2024 12:15 PM OFF/OP EST OCTOBER X REQ PHY/QHP PRIMARY CARE/MEDICINE ICD-10-CM Z01.31 Encounter for exam of blood pressure w abnormal findings NIKOLE POST Abdullahi Encounter Template Text not used by [place] Assessments - Encounter Diagnoses This section includes the primary and secondary diagnoses documented for the Encounter. Date/Time Primary/Secondary Diagnosis Diagnosis Name Provider Source Aug 12, 2024 12:46 PM PRIMARY Encounter for exam of blood pressure w abnormal findings [facility]AD[facility] Plan of Treatment: Future Appointments [...] 20 appointments. The data comes from all [facility]. Appointment Date/Time Appointment Type Appointme nt Facility Name Aug 19, 2024 12:30 PM [facility] [place] [facility] Aug 19, 2024 12:31 PM AMBULATORY - MEDICINE [facility] Aug 26, 2024 12:30 PM [facility] [facility] Aug 26, 2024 12:31 PM AMBULATORY - MEDICINE [facility] Sep 09, 2024 12:30 PM [facility] [facility] Sep 09, 2024 12:31 PM AMBULATORY - MEDICINE [facility] Sep 16, 2024 12:30 PM [facility] [facility] Sep 16, 2024 12:31 PM AMBULATORY - MEDICINE [facility] Sep 23, 2024 12:30 PM AM[facility]ULATORY [facility] [place] [facility] Sep 23, 2024 12:31 PM AMBULATORY - MEDICINE [facility] Sep 30, 2024 12:30 PM AM[facility]ULATORY - [facility] [facility] Sep 30, 2024 12:31 PM AMBULATORY - MEDICINE [facility] Oct 07, 2024 12:30 PM [facility] [place] [facility] Oct 07, 2024 12:31 PM AMBULATORY - MEDICINE [facility] Nov 20, 2024 03:00 PM AMBULATORY - [place] [facility] Vital Signs: All taken on the encounter date This section contains inpatient and outpatient Vital Signs collected on the date of the Encounter. Date/Time Temperature Pulse Blood Pressure Respiratory Rate SP02 Pain Height Weight Body Mass Index Source Aug 12, 2024 12:25 PM 65 153/97 100 [facility] Aug 12, 2024 12:24 PM 60 147/95 99 [facility] Aug 12, 2024 12:23 PM 381 56 [facility] Social History: Smoking Status (Most current) and Tobacco Use (All prior to encounter date) This section includes the most current, and the historical, smoking and tobacco- related health factors from the [place] facility where the Encounter took place. Current Smoking Status This section includes the most current smoking, or tobacco-related health factor, from the [place] facility where the Encounter took place. Date/Time Current Smoking Status Comment Facil ity Jun 08, 2024 08:32 AM VA-TOBACCO USE FORMER CIGARETTES [facility] Tobacco Use History This section includes a history of the smoking, or tobacco-related health factors, that were collected on or before the date of the Encounter. The data comes from the [place] facility where the Encounter took place. Date/Time Smoking Status/Tobacco Use Comment F acility Jun 08, 2024 08:32 AM VA-TOBACCO USE FORMER CIGARETTES [facility] Jun 07, 2023 09:00 AM VA-TOBACCO FOR[facility] USER [facility] Jun 07, 2023 09:00 AM VA-TOBACCO QUIT 15 YRS OR MORE [facility] Jun 08, 2022 08:30 AM VA-TOBACCO FORMER USER [facility] Jun 08, 2022 08:30 AM VA-TOBACCO QUIT 15 YRS OR MORE [facility] Jun 08, 2021 08:30 AM VA-TOBACCO FORMER USER [facility] [facility] Jun 08, 2021 08:30 AM VA-TOBACCO QUIT 15 YRS OR MORE [facility] Jun 13, 2020 08:30 AM VA-TOBACCO FORMER USER [facility] Jun 13, 2020 08:30 AM VA-TOBACCO QUIT 5 TO < 15 YRS [facility] Dec 27, 2017 09:37 AM VA-TOBACCO FORMER USER [facility] Dec 27, 2017 09:37 AM VA-TOBACCO QUIT 5 TO < 15 YRS [facility] October 21, 2013 10:10 AM QUIT TOBACCO >7 YEARS AGO [facility] Jul 23, 2008 08:43 AM QUIT TOBACCO IN THE LAST 12 YUSEF [facility] Jul 04, 2007 02:21 PM CURRENT TOBACCO USER [facility] Jul 04, 2007 02:21 PM TOBACCO OFFERED STOP SMOKING CLI [facility] Encounter Notes: All associated encounter notes This section contains the clinical notes associated to the Encounter. Date/Time Encounter Note(s) Provider Source Aug 13, 2024 09:21 AM ADDENDUM: LOCAL TITLE: Addendum STANDARD TITLE: ADDENDUM DATE OF NOTE: AUG 13, 2024@09:21:48 ENTRY DATE: AUG 13, 2024@09:21:50 AUTHOR: KAITLIN CAMACHO EXP COSIGNER: URGENCY: STATUS: COMPLETED Notify patient that his kidney function is excellent we will call and he does not have diabetes we are finding using hydrochlorothiazide that was working for him. /es/ Kaitlin Camacho MD [facility] Signed: 08/13/2024 09:24 Receipt Acknowledged By: 09/04/2024 09:49 /es/ Bradley Post RN,BSN Rigo Green, LAURYN --- Original Document --- 08/12/24 NURSING NOTE PB: This is a 49 year old MALE with known Allergies as noted: MORPHINE On the following Active Medications: Active Outpatient Medications (including Supplies): Active Outpatient Medications Status 1) CHOLECALCIF 50MCG (D3-2,000UNIT) TAB TAKE TWO TABLETS BY ACTIVE MOUTH ONCE A DAY Indication: FOR VITAMIN D DEFICIENCY 2) LISINOPRIL 40MG TAB TAKE ONE-HALF TABLET BY MOUTH ONCE A DAY ACTIVE Indication: FOR HIGH BLOOD PRESSURE C/C: follow up BP check S: The presented to the clinic today for follow up BP check and for the MOVE meeting. The was seen by CVT on 06/08/24, reports that during that visit the provider stopped the HCTZ, he said he was going to save my kidneys, and start me on Lisinopril. I did good on the HCTZ, but I stopped taking the HCTZ after a few weeks because it was making me cough so much I could not take it. Let the know that next time he should call us so we can make a medication change. O/A: The ambulated to the exam room with assistance, gait is steady. BP was elevated x 2 in clinic today. Vitals: as charted. P: Discussed the above symptoms and assessment with Dr. Camacho. Let the know that Dr. Camacho would review his chart and then make a decision about a new medication. Let the know that it would be this afternoon or tomorrow morning. The would like it called out to [facility] in [place]. The voiced understanding, is in agreement with the plan and has no further questions or complaints at this time. The ambulated to the exit in satisfactory manner. RTC: as needed /adelia/ Bradley Post RN,BSN [facility] Signed: 08/12/2024 12:45 Receipt Acknowledged By: 08/13/2024 09:23 /adelia/ Kaitlin Camacho MD [facility] KAILTIN CAMACHO [facility] Aug 12, 2024 12:17 PM NURSING PROGRESS NOTE: LOCAL TITLE: NURSING NOTE PB STANDARD TITLE: NURSING PROGRESS NOTE DATE OF NOTE: AUG 12, 2024@12:17 ENTRY DATE: AUG 12, 2024@12:17:54 AUTHOR: BRADLEY POST EXP COSIGNER: URGENCY: STATUS: COMPLETED NURSING NOTE PB Has ADDENDA This is a 49 year old MALE with known Allergies as noted: MORPHINE On the following Active Medications: Active Outpatient Medications (including Supplies): Active Outpatient Medications Status 1) CHOLECALCIF 50MCG (D3-2,000UNIT) TAB TAKE TWO TABLETS BY ACTIVE MOUTH ONCE A DAY Indication: FOR VITAMIN D DEFICIENCY 2) LISINOPRIL 40MG TAB TAKE ONE-HALF TABLET BY MOUTH ONCE A DAY ACTIVE Indication: FOR HIGH BLOOD PRESSURE C/C: follow up BP check S: The presented to the clinic today for follow up BP check and for the MOVE meeting. The was seen by CVT on 06/08/24, reports that during that visit the provider stopped the HCTZ, he said he was going to save my kidneys, and start me on Lisinopril. I did good on the HCTZ, but I stopped taking the HCTZ after a few weeks because it was making me cough so much I could not take it. Let the know that next time he should call us so we can make a medication change. O/A: The ambulated to the exam room with assistance, gait is steady. BP was elevated x 2 in clinic today. Vitals: as charted. P: Discussed the above symptoms and assessment with Dr. Camacho. Let the know that Dr. Camacho would review his chart and then make a decision about a new medication. Let the know that it would be this afternoon or tomorrow morning. The would like it called out to [facility] in [place]. The voiced understanding, is in agreement with the plan and has no further questions or complaints at this time. The ambulated to the exit in satisfactory manner. RTC: as needed /adelia/ Bradley Post RN,BSFred [facility] Signed: 08/12/2024 12:45 Receipt Acknowledged By: 08/13/2024 09:23 /adelia/ Kaitlin Camacho MD [facility] 08/13/2024 ADDENDUM STATUS: COMPLETED Notify patient that his kidney function is excellent we will call and he does not have diabetes we are finding using hydrochlorothiazide that was working for him. /adelia/ Kaitlin Camacho MD [facility] Signed: 08/13/2024 09:24 Receipt Acknowledged By: 09/04/2024 09:49 /adelia/ Bradley Post RN,BSN [facility] 09/04/2024 ADDENDUM STATUS: COMPLETED Called the about the above results. The voiced understanding. Reports that the HCTZ seems to be working well for him, I no longer have a cough and feel great. The did report that he had not checked his BP in a while because he has been traveling for work. Asked the to check his BP when he thinks about it and if it is high to call us and set up a nurse visit so we can look at if we need to make any dose changes. The voiced understanding and had no further questions at this time. /adelia/ Bradley Post RN,BSN Rigo Green, LAURYN Signed: 09/04/2024 09:52 [facility]
--- OUTSIDE RECORDS SUMMARY | 2024-08-26 07:30 | XMS_ITS ---
Author Name [facility] [place] Organization [facility] [place] Address [address] [place] [address] Care Team Providers Care Mailroom Personnel Name Role Phone TRINI, DARIUS Primary Care Provider Unavailabl e Selected Encounter This section includes the information on record at [place] for the Encounter. Date/Time Encounter Type Encounter Description Reason Provider Source Aug 26, 2024 12:30 PM [facility] WE[facility] MGMT & MOVE! PROG - GRP ICD-10-CM E66.813 Obesity, class 3 KRYSTLE WESTON Abdullahi Encounter Template Text not used by [place] Assessments - Encounter Diagnoses This section includes the primary and secondary diagnoses documented for the Encounter. Date/Time Primary/Secondary Diagnosis Diagnosis Name Provider Source Aug 26, 2024 03:42 PM PRIMARY Obesity, class 3 KRYSTLE WESTON [place] [facility] Aug 26, 2024 03:42 PM SECONDARY Body mass index [BMI] 50.0-59.9, adult KRYSTLE WESTON [place] [facility] Plan of Treatment: Future Appointments (+ 6 [...] Date/Time Appointment Type Appointme nt Facility Name Sep 09, 2024 12:30 PM [facility] [place] [facility] Sep 09, 2024 12:31 PM [facility] [place] [facility] Sep 16, 2024 12:30 PM [facility] [place] [facility] Sep 16, 2024 12:31 PM AMBULATORY [place]IC[place] [facility] Sep 23, 2024 12:30 PM [facility]BUL[facility]ORY [facility] [place] [facility] Sep 23, 2024 12:31 PM AMBULATORY - [place]ICINE [place] [facility] Sep 30, 2024 12:30 PM AMBUL[facility] [place] [facility] Sep 30, 2024 12:31 PM [place]ULATORY - [place]ICINE [place] [facility] Oct 07, 2024 12:30 PM AMBUL[facility] [place] [facility] Oct 07, 2024 12:31 PM [facility] Nov 20, 2024 03:00 PM AMBULATORY - [place]IC[facility] [place] [facility] Encounter Notes: All associated encounter notes This section contains the clinical notes associated to the Encounter. Date/Time Encounter Note(s) Provider Source Aug 26, 2024 03:36 PM MOVE NOTE: LOCAL TITLE: MOVE! COMPREHENSIVE LIFESTYLE INTERVENTION STANDARD TITLE: MOVE NOTE DATE OF NOTE: AUG 26, 2024@15:36 ENTRY DATE: AUG 26, 2024@15:36:59 AUTHOR: KRYSTLE WESTON EXP COSIGNER: URGENCY: STATUS: COMPLETED MOVE! Comprehensive Lifestyle Intervention (CLI) ASSESSMENT: BMI Assessment: Height: 69 in [175.3 cm] (06/07/2023 09:09) Weight: Measurement DT WEIGHT LB(KG)[BMI] 08/26/2024 12:24 369.6(167.65)[55*] 08/19/2024 12:22 369.5(167.60)[55*] 08/12/2024 12:23 381(172.82)[56*] MOVE! Program Starting Date: 07/02/2024 MOVE! Weight Management Starting Date 07/02/24 MOVE! Program Starting Weight: 07/02/2024 MOVE! Weight Management Program Starting Weight (Lbs) 385.1 Session Modality: Group session agreed to participate in group intervention and to respect the privacy of all persons who attended the session. Ru was one of 9 group members to attend. Facilitated by: ADINA Taylor Delivery Method: Synchronous Video Visit conducted by synchronous telehealth. [place] verbal consent obtained. Location/emergency number confirmed. Environment surveyed and all participants identified. Virtual conference room locked. Patient location during visit: [place] Facility: [facility] Best contact number for backup/emergency communication with patient: Length of Session (minutes): 60 Reason for Encounter: Obesity, Class 3-BMI greater than 40 INTERVENTION: The participated in a comprehensive lifestyle intervention utilizing the MOVE! [place] Workbook and Sole Inker Guide. The [place] was engaged in a whole health approach that supported their mission, aspiration and purpose. The was assisted to develop the knowledge, skills and confidence needed to effectively self-manage their weight. Discussed 's SMART goals. Goal 1: 08/12/2024 MOVE! Session Goal 1 [place] will track dietary intake on a daily basis. Continuing Goal 2: 08/05/2024 MOVE! Session Goal 2 will achieve 30 minutes of physical activity over the next week. Continuing Education was provided during the session. MOVE! Workbook [place] Level of Engagement: Full engagement; actively listening/participates in discussion/questions [place] level of understanding of education received: Full understanding; Demonstrates/verbalizes through Teach-Back WEIGHT MANAGEMENT SESSIONS: Eat Wisely: Discussion Topics: Eat Healthy by Creating a Healthy Plate My Healthy Plate Food Groups Liquid Calories Size It Up! Busting Barriers MONITORING & EVALUATION The [place] was asked to measure and record body weight regularly and record all food intake and physical activity in a log. was encouraged to review the MOVE! Workbook materials. Follow-up: MOVE! Group Session /adelia/ KRYSTLE WESTON CLINICAL DIETITIAN Signed: 08/26/2024 15:43 KRYSTLE WESTON [facility]
--- OUTSIDE RECORDS SUMMARY | 2024-08-26 07:31 | XMS_ITS | Encounter Summary ---
Author Name [facility] of [facility] ([place]) Organization [facility] [place] Address [address] [place] [address] Care Team Providers Care Garnett Mechanic Name Role Phone TRINI DARIUS Primary Care Provider Unavailabbi e Selected Encounter This section includes the information on record at ID for the Encounter. Date/Time Encounter Type Encounter Description Reason Provider Source Aug 26, 2024 12:31 PM [facility] FEE WEIGHT MGMT & MOVE! PROG - GRP ICD-10-CM E66.813 Obesity, class 3 KATH WESTON [facility] Encounter Template Text not used by [place] Assessments - Encounter Diagnoses This section includes the primary and secondary diagnoses documented for the Encounter. Date/Time Primary/Secondary Diagnosis Diagnosis Name Provider Source Sep 01, 2024 09:12 AM PRIMARY Obesity, class 3 KRYSTLE WESTON [facility] Sep 01, 2024 09:12 AM SECONDARY Body mass index [BMI] 50.0-59.9, adult KRYSTLE WESTON [facility] Plan of Treatment: Future Appointments (+ [...] 20 appointments. The data comes from all [place] treatment facilities. Appointment Date/Time Appointment Type Appointme nt Facility Name Sep 09, 2024 12:30 PM AMBULATORY - [place] [facility] Sep 09, 2024 12:31 PM AMBULATORY - MEDICINE [facility] Sep 16, 2024 12:30 PM AM[facility]ULATORY - [place] [facility] Sep 16, 2024 12:31 PM [facility] [place] [facility] Sep 23, 2024 12:30 PM AMBULATORY - [place] [facility] Sep 23, 2024 12:31 PM AMBULATORY - MEDICINE [facility] Sep 30, 2024 12:30 PM AMBULATORY - [place] [facility] Sep 30, 2024 12:31 PM [facility] [place] [facility] Oct 07, 2024 12:30 PM AMBULATORY - [place]IC[place] [facility] Oct 07, 2024 12:31 PM AMBULATORY - MEDICINE [facility] Nov 20, 2024 03:00 PM AMBULATORY - [place]IC[place] [facility] Vital Signs: All taken on the encounter date This section contains inpatient and outpatient Vital Signs collected on the date of the Encounter. Date/Time Temperature Pulse Blood Pressure Respiratory Rate SP02 Pain Height Weight Body Mass Index Source Aug 26, 2024 12:24 PM 369.6 55 [facility] Social History: Smoking Status (Most current) and Tobacco Use (All prior to encounter date) This section includes the most current, and the historical, smoking and tobacco- related health factors from the [place] facility where the Encounter took place. Current Smoking Status This section includes the most current smoking, or tobacco-related health factor, from the [place] facility where the Encounter took place. Date/Time Current Smoking Status Comment Facil ity Jun 08, 2024 08:32 AM VA-TOBACCO USE FORMER CIGARETTES [facility] Tobacco Use History This section includes a history of the smoking, or tobacco-related health factors, that were collected on or before the date of the Encounter. The data comes from the [place] facility where the Encounter took place. Date/Time Smoking Status/Tobacco Use Comment F acility Jun 08, 2024 08:32 AM ID-TOBACCO USE [facility] Jun 07, 2023 09:00 AM VA-TOBACCO FORMER US[facility] [place] [facility] Jun 07, 2023 09:00 AM VA-TOBACCO QUIT 15 YRS OR MORE [place] [facility] Jun 08, 2022 08:30 AM VA-TOBACCO FORMER USER [place] [facility] Jun 08, 2022 08:30 AM VA-TOBACCO QUIT 15 YRS OR MORE [facility] Jun 08, 2021 08:30 AM VA-TOBACCO FORMER US[facility] [place] [facility] Jun 08, 2021 08:30 AM VA-TOBACCO QUIT 15 YRS OR MORE [facility] Jun 13, 2020 08:30 AM VA-TOBACCO FORMER USER [facility] [facility] Jun 13, 2020 08:30 AM VA-TOBACCO QUIT 5 TO < 15 YRS [facility] Dec 27, 2017 09:37 AM VA-TOBACCO FORMER USER [place] [facility] Dec 27, 2017 09:37 AM VA-TOBACCO QUIT 5 TO < 15 YRS [place] [facility] October 21, 2013 10:10 AM QUIT TOBACCO >7 YEARS AGO [place] [facility] Jul 23, 2008 08:43 AM QUIT TOBACCO IN THE LAST 12 YUSEF [facility] Jul 04, 2007 02:21 PM CURRENT TOBACCO USER [place] [facility] Jul 04, 2007 02:21 PM TOBACCO OFFERED STOP SMOKING CLI [facility] [place] [facility]
--- OUTSIDE RECORDS SUMMARY | 2024-12-16 07:22 | XMS_ITS | Encounter Summary ---
Author Name [facility] Address [address] [place] [address] Care Team Providers Care Tests Superintendent Name Role Phone KAITLIN CAMACHO Primary Care Provider Unavailabl e Selected Encounter This section includes the information on record at [place] for the Encounter. Date/Time Encounter Type Encounter Description Reason Provider Source Dec 16, 2024 12:22 PM PH1 ASSMT&MGMT NQHP 5-10 TELEPHONE PRIMARY CARE ICD-10-CM M79.661 Pain in right lower leg EUNICE POST Abdullahi Encounter Template Text not used by [place] Assessments - Encounter Diagnoses This section includes the primary and secondary diagnoses documented for the Encounter. Date/Time Primary/Secondary Diagnosis Diagnosis Name Provider Source Dec 16, 2024 12:22 PM PRIMARY Pain in right lower leg EUNICE POST [facility] Plan of Treatment: Future Appointments (+ [...] Date/Time Appointment Type Appointme nt Facility Name May 28, 2025 08:20 AM [facility] Jun 04, 2025 08:30 AM [facility] Social History: Smoking Status (Most current) and Tobacco Use (All prior to encounter date) This section includes the most current, and the historical, smoking and tobacco- related health factors from the [facility] facility where the [facility]counter took place. Current Smoking Status This section includes the most current smoking, or tobacco-related health factor, from the [facility] facility where the Encounter took place. Date/Time Current Smoking Status Comment Facil ity Jun 08, 2024 08:32 AM VA-TOBACCO USE FORMER CIGARETTES [facility] Tobacco Use History This section includes a history of the smoking, or tobacco-related health factors, that were collected on or before the date of the Encounter. The data comes from the [place] facility where the Encounter took place. Date/Time Smoking Status/Tobacco Use Comment F acility Jun 08, 2024 08:32 AM VA-TOBACCO USE FORMER CIGARETTES [facility] Jun 07, 2023 09:00 AM VA-TOBACCO FORMER USER [facility] Jun 07, 2023 09:00 AM VA-TOBACCO QUIT 15 YRS OR MORE [facility] Jun 08, 2022 08:30 AM VA-TOBACCO FORMER USER [facility] Jun 08, 2022 08:30 AM VA-TOBACCO QUIT 15 YRS OR MORE [facility] Jun 08, 2021 08:30 AM VA-TOBACCO FORMER USER [facility] Jun 08, 2021 08:30 AM VA-TOBACCO QUIT 15 YRS OR MORE [facility] Jun 13, 2020 08:30 AM VA-TOBACCO FORMER USER [facility] Jun 13, 2020 08:30 AM VA-TOBACCO QUIT 5 TO < 15 YRS [facility] Dec 27, 2017 09:37 AM VA-TOBACCO FORMER USER [facility] Dec 27, 2017 09:37 AM VA-TOBACCO QUIT 5 TO < 15 YRS [facility] October 21, 2013 10:10 AM QUIT TOBACCO >7 YEARS AGO [facility] Jul 23, 2008 08:43 AM QUIT TOBACCO IN THE LAST 12 YUSEF [facility] Jul 04, 2007 02:21 PM CURRENT TOBACCO USER [facility] Jul 04, 2007 02:21 PM TOBACCO OFFERED STOP SMOKING CLI [facility] Encounter Notes: All associated encounter notes This section contains the clinical notes associated to the Encounter. Date/Time Encounter Note(s) Provider Source Dec 16, 2024 12:22 PM TELEPHONE ENCOUNTE R NOTE: LOCAL TITLE: TELEPHONE NOTE STANDARD TITLE: TELEPHONE ENCOUNTER NOTE DATE OF NOTE: DEC 16, 2024@12:22 ENTRY DATE: DEC 16, 2024@12:22:31 AUTHOR: EUNICE POST EXP COSIGNER: URGENCY: STATUS: COMPLETED Returned call to the . The reports that he has been using the inserts given to him by podiatry that have a ball in the heal of them and has been having Right calf pain for the last few days. Reports, I thought that it might be from the inserts, so I took the inserts out of my shoes but am still having pain in the right calf since removing the inserts. The denies swelling or redness, but does report he does have some warmth. The does report increased pain with ambulation. Let the know it could be a DVT and that he should go to the ER for further evaluation. The asked if he could go to urgent care on Saturday to have it looked at. Let him know with his symptoms he should be seen in the ER and not wait till Saturday. Let him know that if it was a clot it could go to the lungs and could become life threatening. The voiced understanding and had no further questions at this time. given [employer] reporting number /[email or web address]/ Eunice Post RN,BSN [place] Signed: 12/16/2024 12:35 Receipt Acknowledged By: 12/16/2024 13:42 /adelia/ Kaitlin Camacho MD [place] [facility] EUNICE POST
--- OUTSIDE RECORDS SUMMARY | 2024-12-16 12:16 | XMS_ITS | Continuity of Care Document ---
Author Name [facility] Organization [facility] Care Team Providers Care Digital Strategist Name Role Phone [facility] Unavailable Unavailable Problems Combined list of problems from Department of Defense and Veterans Affairs facilities. It does not include entries that were removed or entered in error. Problem Status Onset Date Problem Type Date of Resolution Comments Source Deviated nasal septum Active Condition [facility] HTN - Hypertension (SNOMED CT 87949955) Active Condition [place] [facility] Hyperlipidemia Active Condition [facility] Lumbar radiculopathy Active Condition [facility] [facility] [facility] Morbid Obesity ([facility] 040153932) Active Condition [facility] [facility] Obesity Active Condition [facility] Pain in left knee Active Condition [place] [facility] Plantar fasciitis Active Condition [place] [facility] [facility] Polyp Colon (SCT 42550664) Active Condition Jan 15, 2023 Entered By: DARIUS FELIZ Comment: colonoscopy 12/07/22 + adnomatous polyp next due 11/2024 [facility] [facility] Prediabetes Active Condition [facility] [facility] Vitamin D Deficiency ([facility] 0786452) Active Condition [place] [facility] Acute upper respiratory infections of unspecified site (ICD-9-CM 465.9) Inactive Condition 08/30/2017 [facility] [facility] [facility] 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) Inactive Condition 08/30/2017 [facility] Laboratory Procedures (ICD-9-CM V72.6) Inactive Condition 08/30/2017 [facility] Lipoma * Inactive Condition 08/30/2017 [facility] Moles multiple benign Inactive Condition 08/30/2017 [facility] Plantar fasciitis (SNOMED CT 771297794) Inactive Condition 08/30/2017 [facility] Varicose veins of lower extremity (SNOMED CT 05715420) Inactive Condition 08/30/2017 [facility] Diagnosis: ICD-10-CM M79.661 Pain in right lower leg Active Diagnosis [facility] Diagnosis: ICD-10-CM E66.01 Morbid (severe) obesity due to excess calories Active Diagnosis [facility] Diagnosis: ICD-10-CM E66.813 Obesity, class 3 Active Diagnosis [facility] Diagnosis: ICD-10-CM Z01.31 Encounter for exam of blood pressure w abnormal findings Active Diagnosis [facility] Diagnosis: ICD-10-CM I10 Essential (primary) hypertension Active Diagnosis [facility] Diagnosis: ICD-10-CM K59.00 Constipation, unspecified Active Diagnosis [facility] Diagnosis: ICD-10-CM Z71.89 Other specified counseling Active Diagnosis [facility] Medications Combined list of outpatient medications from Department [facility] Affairs facilities.Medications provided include 1) outpatient medications from the last 15 months, and 2) patient-reported medications. Medication Details Route Status Patient Instructions Prescription Expires Prescription Number Last Dispense Date Ordering Provider Order Date Order Qty Source CHOLECALCIF WERNER 50MCG (2,000UNIT) TAB TAKE TWO TABLETS BY MOUTH ONCE A DAY FOR VITAMIN D DEFICIEN CY ORAL ACTIVE 06/09/2025 [id number] 4 HEMANTH WHITTEN 2023 200 [facility] HYDROCHLORO THIAZIDE 25MG TAB TAKE ONE TABLET BY MOUTH ONCE A DAY FOR HIGH BLOOD PRESSURE ORAL ACTIVE 08/14/2025 [id number] 5 DARIUS FELIZ 2024 90 [facility] LISINOPRIL 40MG TAB TAKE ONE-HALF TABLET BY MOUTH ONCE A DAY FOR HIGH BLOOD PRESSURE ORAL DISCONT INUED BY PROVIDE R 06/09/2025 [id number] 4 HEMANTH WHITTEN 2023 45 [facility] Allergies, Adverse Reactions, Alerts Combined list of allergies from Department of [facility] and Veterans Affairs facilities. It does not include entries that were removed or entered in error. Substance Category Reaction Severity Reaction type Status Date Reported Comments Source MORPHINE Propensity to adverse reactions to drug (finding) Eruption active 08/30/2017 [facility] Immunizations Combined list of available immunizations from the Department of [facility] and Veterans Affairs facilities. Immunization Series Date Given Administered By Site Reaction Lot Number CVX Code Drug Enterprise Application Architect Status Comments Source INFLUENZA, INJECTABLE, QUADRIVALENT, PRESERVATIVE FREE 2020 150 complet ed [facility] TDAP 2019 115 complet ed [facility] TD(ADULT) UNSPECIFIED FORMULATION 2008 139 complet ed Left Deltoid [facility] INFLUENZA, WHOLE 2000 16 complet ed [facility] TD(ADULT) UNSPECIFIED FORMULATION 1995 139 complet ed [facility] L Results Combined list of recent chemistry, hematology and other laboratory results from Department of Defense and Veterans Affairs, ranging from 15 months to all on record, depending upon the facility. Order Name Results Value Reference Range Date Interpretation Specimen Comments Source HGA1C HEMOGLOBIN A1C/HEMOGLOBI N.TOTAL IN BLOOD 6.2 4.0 - 6.0 05/29 H Specimen Type: BLOOD No comment entered. Ordering Provider: DARIUS FELIZ Report Released Date/Time : Jun 07, 2023 09:21 AM Reporting Lab: [place] [facility] [address] [place] [address] Performin g Lab: [place] [facility] [address] [place] [address] [facility] TSH (MA-PB) THYROTROPIN [UNITS/VOLUME ] IN SERUM OR PLASMA 1.168 u[IU]/ mL 0.47 - 5 05/29 Specimen Type: SERUM No comment entered. Ordering Provider: DARIUS FELIZ Report Released Date/Time : Jun 07, 2023 09:21 AM Reporting Lab: [place] [facility] [address] [place] [address] Performin g Lab: [place] [facility] [address] [place] [address] [facility] CHOLESTEROL PANEL (PB) CHOLESTEROL [MASS/VOLUME] IN SERUM OR PLASMA 186 mg/dL 0 - 200 05/29 Specimen Type: PLASMA No comment entered. Ordering Provider: DARIUS FELIZ Report Released Date/Time : Jun 07, 2023 09:21 AM Reporting Lab: [place] [facility] [address] [place] [address] 8 Performin g Lab: [place] [facility] [address] [place] [address] [facility] CHOLESTEROL PANEL (PB) TRIGLYCERIDE [MASS/VOLUME] IN SERUM OR PLASMA 170 mg/dL 0 - 150 05/29 H Specimen Type: PLASMA No comment entered. Ordering Provider: DARIUS FELIZ Report Released Date/Time : Jun 07, 2023 09:21 AM Reporting Lab: [place] [facility] [address] [place] [address] 8 Performin g Lab: [place] [facility] [address] [place] [address] [facility] CHOLESTEROL PANEL (PB) CHOLESTEROL IN LDL [MASS/VOLUME] IN SERUM OR PLASMA BY CALCULATION 117.6 mg/dL 05/29 Specimen Type: PLASMA No comment entered. Ordering Provider: DARIUS FELIZ Report Released Date/Time : Jun 07, 2023 09:21 AM Reporting Lab: [place] [facility] [address] [place] [address] 8 Performin g Lab: [place] [facility] [address] [place] [address] [facility] CHOLESTEROL PANEL (PB) CHOLESTEROL IN HDL [MASS/VOLUME] IN SERUM OR PLASMA 34.4 mg/dL 40 05/29 L Specimen Type: PLASMA No comment entered. Ordering Provider: DARIUS FELIZ Report Released Date/Time : Jun 07, 2023 09:21 AM Reporting Lab: [place] [facility] [address] [place] [address] Performin g Lab: [place] [facility] [address] [place] [address] [facility] CHOLESTEROL PANEL (PB) CHOLESTEROL IN HDL/CHOLESTER OL.TOTAL [MASS RATIO] IN SERUM OR PLASMA 18.5 25 05/29 Specimen Type: PLASMA No comment entered. Ordering Provider: DARIUS FELIZ Report Released Date/Time : Jun 07, 2023 09:21 AM Reporting Lab: [place] [facility] [address] [place] [address] 8 Performin g Lab: [place] [facility] [address] [place] [address] [facility] COMPREHENSI VE METABOLIC PANEL CREATININE [MASS/VOLUME] IN SERUM OR PLASMA 0.80 mg/dL 0.7 - 1.3 05/29 Specimen Type: PLASMA No comment entered. Ordering Provider: DARIUS FELIZ Report Released Date/Time : Jun 07, 2023 09:21 AM Reporting Lab: [place] [facility] [address] [place] [address] 8 Performin g Lab: [place] [facility] [address] [place] [address] [facility] COMPREHENSI VE METABOLIC PANEL UREA NITROGEN [MASS/VOLUME] IN SERUM OR PLASMA 13 mg/dL 9 - 25 05/29 Specimen Type: PLASMA No comment entered. Ordering Provider: DARIUS FELIZ Report Released Date/Time : Jun 07, 2023 09:21 AM Reporting Lab: [place] [facility] [address] [place] [address] 8 Performin g Lab: [place] [facility] [address] [place] [address] [facility] COMPREHENSI VE METABOLIC PANEL GLUCOSE [MASS/VOLUME] IN SERUM OR PLASMA 101 mg/dL 72 - 99 05/29 H Specimen Type: PLASMA No comment entered. Ordering Provider: DARIUS FELIZ Report Released Date/Time : Jun 07, 2023 09:21 AM Reporting Lab: [place] [facility] [address] [place] [address] 8 Performin g Lab: [place] [facility] [address] [place] [address] [facility] COMPREHENSI VE METABOLIC PANEL SODIUM [MOLES/VOLUME ] IN SERUM OR PLASMA 137 meq/L 136 - 145 05/29 Specimen Type: PLASMA No comment entered. Ordering Provider: DARIUS FELIZ Report Released Date/Time : Jun 07, 2023 09:21 AM Reporting Lab: [place] [facility] [address] [place] [address] 8 Performin g Lab: [place] [facility] [address] [place] [address] [facility] COMPREHENSI VE METABOLIC PANEL POTASSIUM [MOLES/VOLUME ] IN SERUM OR PLASMA 4.4 meq/L 3.5 - 5 05/29 Specimen Type: PLASMA No comment entered. Ordering Provider: DARIUS FELIZ Report Released Date/Time : Jun 07, 2023 09:21 AM Reporting Lab: [place] [facility] [address] [place] [address] 8 Performin g Lab: [place] [facility] [address] [place] [address] [facility] COMPREHENSI VE METABOLIC PANEL CHLORIDE [MOLES/VOLUME ] IN SERUM OR PLASMA 102 meq/L 98 - 107 05/29 Specimen Type: PLASMA No comment entered. Ordering Provider: DARIUS FELIZ Report Released Date/Time : Jun 07, 2023 09:21 AM Reporting Lab: [place] [facility] [address] [place] [address] 8 Performin g Lab: [place] [facility] [address] [place] [address] 8 [facility] COMPREHENSI VE METABOLIC PANEL CARBON DIOXIDE, TOTAL [MOLES/VOLUME ] IN SERUM OR PLASMA 25 meq/L 22 - 31 05/29 Specimen Type: PLASMA No comment entered. Ordering Provider: DARIUS FELIZ Report Released Date/Time : Jun 07, 2023 09:21 AM Reporting Lab: [place] [facility] [address] [place] [address] 8 Performin g Lab: [place] [facility] [address] [place] [address] [facility] COMPREHENSI VE METABOLIC PANEL CALCIUM [MASS/VOLUME] IN SERUM OR PLASMA 9.3 mg/dL 8.4 - 10.4 05/29 Specimen Type: PLASMA No comment entered. Ordering Provider: DARIUS FELIZ Report Released Date/Time : Jun 07, 2023 09:21 AM Reporting Lab: [place] [facility] [address] [place] [address] Performin g Lab: [place] [facility] [address] [place] [address] [facility] COMPREHENSI VE METABOLIC PANEL PROTEIN [MASS/VOLUME] IN SERUM OR PLASMA 7.5 g/dL 6 - 8.6 05/29 Specimen Type: PLASMA No comment entered. Ordering Provider: DARIUS FELIZ Report Released Date/Time : Jun 07, 2023 09:21 AM Reporting Lab: [place] [facility] [address] [place] [address] 8 Performin g Lab: [place] [facility] [address] [place] [address] [facility] COMPREHENSI VE METABOLIC PANEL ALBUMIN [MASS/VOLUME] IN SERUM OR PLASMA 4.2 g/dL 3.4 - 5 05/29 Specimen Type: PLASMA No comment entered. Ordering Provider: DARIUS FELIZ Report Released Date/Time : Jun 07, 2023 09:21 AM Reporting Lab: [place] [facility] [address] [place] [address] 8 Performin g Lab: [place] [facility] [address] [place] [address] [facility] COMPREHENSI VE METABOLIC PANEL BILIRUBIN.TOT AL [MASS/VOLUME] IN SERUM OR PLASMA 0.8 mg/dL 0.2 - 1.2 05/29 Specimen Type: PLASMA No comment entered. Ordering Provider: DARIUS FELIZ Report Released Date/Time : Jun 07, 2023 09:21 AM Reporting Lab: [place] [facility] [address] [place] [address] 8 Performin g Lab: [place] [facility] [address] [place] [address] [facility] COMPREHENSI VE METABOLIC PANEL ALKALINE PHOSPHATASE [ENZYMATIC ACTIVITY/VOLU ME] IN SERUM OR PLASMA 98 U/L 40 - 150 05/29 Specimen Type: PLASMA No comment entered. Ordering Provider: DARIUS FELIZ Report Released Date/Time : Jun 07, 2023 09:21 AM Reporting Lab: [place] [facility] [address] [place] [address] 8 Performin g Lab: [place] [facility] [address] [place] [address] [facility] COMPREHENSI VE METABOLIC PANEL ASPARTATE AMINOTRANSFER ASE [ENZYMATIC ACTIVITY/VOLU ME] IN SERUM OR PLASMA 35 U/L 5 - 34 05/29 H Specimen Type: PLASMA No comment entered. Ordering Provider: DARIUS FELIZ Report Released Date/Time : Jun 07, 2023 09:21 AM Reporting Lab: [place] [facility] [address] [place] [address] 8 Performin g Lab: [place] [facility] [address] [place] [address] [facility] COMPREHENSI VE METABOLIC PANEL ALANINE AMINOTRANSFER ASE [ENZYMATIC ACTIVITY/VOLU ME] IN SERUM OR PLASMA 46 U/L 8 - 40 05/29 H Specimen Type: PLASMA No comment entered. Ordering Provider: DARIUS FELIZ Report Released Date/Time : Jun 07, 2023 09:21 AM Reporting Lab: [place] [facility] [address] [place] [address] 8 Performin g Lab: [place] [facility] [address] [place] [address] [facility] COMPREHENSI VE METABOLIC PANEL GLOMERULAR FILTRATION RATE/1.73 SQ M.PREDICTED [VOLUME RATE/AREA] IN SERUM, PLASMA OR BLOOD BY CREATININE-BA SED FORMULA (CKD-EPI 2020) 110 05/29 Specimen Type: PLASMA No comment entered. Ordering Provider: DARIUS FELIZ Report Released Date/Time : Jun 07, 2023 09:21 AM Reporting Lab: [place] [facility] [address] [place] [address] 8 Performin g Lab: [place] [facility] [address] [place] [address] [facility] CBC LEUKOCYTES [#/VOLUME] IN BLOOD BY AUTOMATED COUNT 7.7 10*3/u L 3.6 - 11.2 05/29 Specimen Type: BLOOD No comment entered. Ordering Provider: DARIUS FELIZ Report Released Date/Time : Jun 07, 2023 09:21 AM Reporting Lab: [place] [facility] [address] [place] [address] 8 Performin g Lab: [place] [facility] [address] [place] [address] [facility] CBC ERYTHROCYTES [#/VOLUME] IN BLOOD BY AUTOMATED COUNT 5.05 10*6/u L 4.10 - 5.70 05/29 Specimen Type: BLOOD No comment entered. Ordering Provider: DARIUS FELIZ Report Released Date/Time : Jun 07, 2023 09:21 AM Reporting Lab: [place] [facility] [address] [place] [address] 8 Performin g Lab: [place] [facility] [address] [place] [address] [facility] CBC HEMOGLOBIN [MASS/VOLUME] IN BLOOD 14.6 g/dL 13.1 - 16.8 05/29 Specimen Type: BLOOD No comment entered. Ordering Provider: DARIUS FELIZ Report Released Date/Time : Jun 07, 2023 09:21 AM Reporting Lab: [place] [facility] [address] [place] [address] 8 Performin g Lab: [place] [facility] [address] [place] [address] [facility] CBC HEMATOCRIT [VOLUME FRACTION] OF BLOOD 44.4 38.2 - 48.4 05/29 Specimen Type: BLOOD No comment entered. Ordering Provider: DARIUS FELIZ Report Released Date/Time : Jun 07, 2023 09:21 AM Reporting Lab: [place] [facility] [address] [place] [address] 8 Performin g Lab: [place] [facility] [address] [place] [address] [facility] CBC MCV [ENTITIC VOLUME] BY AUTOMATED COUNT 87.9 fL 80.0 - 100.0 05/29 Specimen Type: BLOOD No comment entered. Ordering Provider: DARIUS FELIZ Report Released Date/Time : Jun 07, 2023 09:21 AM Reporting Lab: [place] [facility] [address] [place] [address] 8 Performin g Lab: [place] [facility] [address] [place] [address] [facility] CBC MCH [ENTITIC MASS] BY AUTOMATED COUNT 28.9 pg 27.0 - 34.0 05/29 Specimen Type: BLOOD No comment entered. Ordering Provider: DARIUS FELIZ Report Released Date/Time : Jun 07, 2023 09:21 AM Reporting Lab: [place] [facility] [address] [place] [address] 8 Performin g Lab: [place] [facility] [address] [place] [address] [facility] CBC MCHC [MASS/VOLUME] BY AUTOMATED COUNT 32.9 g/dL 33.0 - 36.0 05/29 L Specimen Type: BLOOD No comment entered. Ordering Provider: DARIUS FELIZ Report Released Date/Time : Jun 07, 2023 09:21 AM Reporting Lab: [place] [facility] [address] [place] [address] Performin g Lab: [place] [facility] [address] [place] [address] [facility] CBC PLATELETS [#/VOLUME] IN BLOOD BY AUTOMATED COUNT 331 10*3/u L 150 - 400 05/29 Specimen Type: BLOOD No comment entered. Ordering Provider: DARIUS FELIZ Report Released Date/Time : Jun 07, 2023 09:21 AM Reporting Lab: [place] [facility] [address] [place] [address] 8 Performin g Lab: [place] [facility] [address] [place] [address] [facility] CBC PLATELET MEAN VOLUME [ENTITIC VOLUME] IN BLOOD BY AUTOMATED COUNT 9.0 fL 7.5 - 11.2 05/29 Specimen Type: BLOOD No comment entered. Ordering Provider: DARIUS FELIZ Report Released Date/Time : Jun 07, 2023 09:21 AM Reporting Lab: [place] [facility] [address] [place] [address] 8 Performin g Lab: [place] [facility] [address] [place] [address] [facility] CBC ERYTHROCYTE DISTRIBUTION WIDTH [RATIO] BY AUTOMATED COUNT 13.6 11.8 - 15.1 05/29 Specimen Type: BLOOD No comment entered. Ordering Provider: DARIUS FELIZ Report Released Date/Time : Jun 07, 2023 09:21 AM Reporting Lab: [place] [facility] [address] [place] [address] 8 Performin g Lab: [place] [facility] [address] [place] [address] [facility] CBC LYMPHOCYTES/1 00 LEUKOCYTES IN BLOOD BY AUTOMATED COUNT 33.6 05/29 Specimen Type: BLOOD No comment entered. Ordering Provider: DARIUS FELIZ Report Released Date/Time : Jun 07, 2023 09:21 AM Reporting Lab: [place] [facility] [address] [place] [address] 8 Performin g Lab: [place] [facility] [address] [place] [address] [facility] CBC MONOCYTES/100 LEUKOCYTES IN BLOOD BY AUTOMATED COUNT 6.5 05/29 Specimen Type: BLOOD No comment entered. Ordering Provider: DARIUS FELIZ Report Released Date/Time : Jun 07, 2023 09:21 AM Reporting Lab: [place] [facility] [address] [place] [address] 8 Performin g Lab: [place] [facility] [address] [place] [address] [facility] CBC NEUTROPHILS/1 00 LEUKOCYTES IN BLOOD BY AUTOMATED COUNT 55.0 05/29 Specimen Type: BLOOD No comment entered. Ordering Provider: DARIUS FELIZ Report Released Date/Time : Jun 07, 2023 09:21 AM Reporting Lab: [place] [facility] [address] [place] [address] 8 Performin g Lab: [place] [facility] [address] [place] [address] 8 [facility] CBC EOSINOPHILS/1 00 LEUKOCYTES IN BLOOD BY AUTOMATED COUNT 3.7 05/29 Specimen Type: BLOOD No comment entered. Ordering Provider: DARIUS FELIZ Report Released Date/Time : Jun 07, 2023 09:21 AM Reporting Lab: [place] [facility] [address] [place] [address] Performin g Lab: [place] [facility] [address] [place] [address] [facility] CBC BASOPHILS/100 LEUKOCYTES IN BLOOD BY AUTOMATED COUNT 0.9 05/29 Specimen Type: BLOOD No comment entered. Ordering Provider: DARIUS FELIZ Report Released Date/Time : Jun 07, 2023 09:21 AM Reporting Lab: [place] [facility] [address] [place] [address] Performin g Lab: [place] [facility] [address] [place] [address] [facility] CBC LYMPHOCYTES [#/VOLUME] IN BLOOD BY AUTOMATED COUNT 2.58 10*3/u L 0.77 - 4.50 05/29 Specimen Type: BLOOD No comment entered. Ordering Provider: DARIUS FELIZ Report Released Date/Time : Jun 07, 2023 09:21 AM Reporting Lab: [place] [facility] [address] [place] [address] 8 Performin g Lab: [place] [facility] [address] [place] [address] 8 [facility] CBC MONOCYTES [#/VOLUME] IN BLOOD BY AUTOMATED COUNT 0.50 10*3/u L 0.19 - 0.8 05/29 Specimen Type: BLOOD No comment entered. Ordering Provider: DARIUS FELIZ Report Released Date/Time : Jun 07, 2023 09:21 AM Reporting Lab: [place] [facility] [address] [place] [address] 8 Performin g Lab: [place] [facility] [address] [place] [address] [facility] CBC NEUTROPHILS [#/VOLUME] IN BLOOD BY AUTOMATED COUNT 4.22 10*3/u L 2.10 - 8.00 05/29 Specimen Type: BLOOD No comment entered. Ordering Provider: DARIUS FELIZ Report Released Date/Time : Jun 07, 2023 09:21 AM Reporting Lab: [place] [facility] [address] [place] [address] 8 Performin g Lab: [place] [facility] [address] [place] [address] 8 [facility] CBC EOSINOPHILS [#/VOLUME] IN BLOOD BY AUTOMATED COUNT 0.28 10*3/u L 0.00 - 0.60 05/29 Specimen Type: BLOOD No comment entered. Ordering Provider: DARIUS FELIZ Report Released Date/Time : Jun 07, 2023 09:21 AM Reporting Lab: [place] [facility] [address] [place] [address] 8 Performin g Lab: [place] [facility] [address] [place] [address] [facility] [facility] CBC BASOPHILS [#/VOLUME] IN BLOOD BY AUTOMATED COUNT 0.07 10*3/u L 0.00 - 0.20 05/29 Specimen Type: BLOOD No comment entered. Ordering Provider: DARIUS FELIZ Report Released Date/Time : Jun 07, 2023 09:21 AM Reporting Lab: [place] [facility] [address] [place] [address] 8 Performin g [facility]: [place] [facility] [address] [place] [address] [facility] CBC IMMATURE GRANULOCYTES/ 100 LEUKOCYTES IN BLOOD BY AUTOMATED COUNT 0.3 05/29 Specimen Type: BLOOD No comment entered. Ordering Provider: DARIUS FELIZ Report Released Date/Time : Jun 07, 2023 09:21 AM Reporting Lab: [place] [facility] [address] [place] [address] 8 [facility]formin [facility]: [place] [facility] [address] [place] [address] 8 [facility] CBC IMMATURE GRANULOCYTES [#/VOLUME] IN BLOOD BY AUTOMATED COUNT 0.02 10*3/u L 0.00 - 0.05 05/29 Specimen Type: BLOOD No comment entered. Ordering Provider: DARIUS FELIZ Report Released Date/Time : Jun 07, 2023 09:21 AM Reporting Lab: [place] [facility] [address] [place] [address] 8 [facility]formin g [facility]: [place] [facility] [address] [place] [address] 8 [facility] HGA1C HEMOGLOBIN A1C/HEMOGLOBI N.TOTAL IN BLOOD 5.7 4.0 - 6.0 05/31 Specimen Type: BLOOD No comment entered. Ordering Provider: DARIUS FELIZ Report Released Date/Time : Jun 08, 2022 09:07 AM Reporting Lab: [place] [facility] [address] [place] [address] 8 Performin [facility]: [place] [facility] [address] [place] [address] [facility] COMPREHENSI VE METABOLIC PANEL CREATININE [MASS/VOLUME] IN SERUM OR PLASMA 0.93 mg/dL 0.7 - 1.3 05/31 Specimen Type: PLASMA No comment entered. Ordering Provider: DARIUS FELIZ Report Released Date/Time : Jun 08, 2022 09:07 AM Reporting Lab: [place] [facility] [address] [place] [address] 8 Performin [facility]: [place] [facility] [address] [place] [address] 8 [facility] COMPREHENSI VE METABOLIC PANEL UREA NITROGEN [MASS/VOLUME] IN SERUM OR PLASMA 16 mg/dL 9 - 25 05/31 Specimen Type: PLASMA No comment entered. Ordering Provider: DARIUS FELIZ Report Released Date/Time : Jun 08, 2022 09:07 AM Reporting Lab: [place] [facility] [address] [place] [address] 8 Performin g [facility]: [place] [facility] [address] [place] [address] 8 [facility] COMPREHENSI VE METABOLIC PANEL GLUCOSE [MASS/VOLUME] IN SERUM OR PLASMA 91 mg/dL 72 - 99 05/31 Specimen Type: PLASMA No comment entered. Ordering Provider: DARIUS FELIZ Report Released Date/Time : Jun 08, 2022 09:07 AM Reporting Lab: [place] [facility] [address] [place] [address] 8 [facility]formin [facility]: [place] [facility] [address] [place] [address] 8 [facility] COMPREHENSI VE METABOLIC PANEL SODIUM [MOLES/VOLUME ] IN SERUM OR PLASMA 136 meq/L 136 - 145 05/31 Specimen Type: PLASMA No comment entered. Ordering Provider: DARIUS FELIZ Report Released Date/Time : Jun 08, 2022 09:07 AM Reporting Lab: [place] [facility] [address] [place] [address] 8 Performin g [facility]: [place] [facility] [address] [place] [address] 8 [facility] COMPREHENSI VE METABOLIC PANEL POTASSIUM [MOLES/VOLUME ] IN SERUM OR PLASMA 3.8 meq/L 3.5 - 5 05/31 Specimen Type: PLASMA No comment entered. Ordering Provider: DARIUS FELIZ Report Released Date/Time : Jun 08, 2022 09:07 AM Reporting Lab: [place] [facility] [address] [place] [address] 8 Performin g [facility]: [place] [facility] [address] [place] [address] 8 [facility] COMPREHENSI VE METABOLIC PANEL CHLORIDE [MOLES/VOLUME ] IN SERUM OR PLASMA 96 meq/L 98 - 107 05/31 L Specimen Type: PLASMA No comment entered. Ordering Provider: DARIUS FELIZ Report Released Date/Time : Jun 08, 2022 09:07 AM Reporting Lab: [place] [facility] [address] [place] [address] 8 Performin [facility]: [place] [facility] [address] [place] [address] 8 [facility] COMPREHENSI VE METABOLIC PANEL CARBON DIOXIDE, TOTAL [MOLES/VOLUME ] IN SERUM OR PLASMA 28 meq/L 22 - 31 05/31 Specimen Type: PLASMA No comment entered. Ordering Provider: ADRIUS FELIZ Report Released Date/Time : Jun 08, 2022 09:07 AM Reporting Lab: [place] [facility] [address] [place] [address] 8 Performin g [facility]: [place] [facility] [address] [place] [address] 8 [facility] COMPREHENSI VE METABOLIC PANEL CALCIUM [MASS/VOLUME] IN SERUM OR PLASMA 9.2 mg/dL 8.4 - 10.4 05/31 Specimen Type: PLASMA No comment entered. Ordering Provider: DARIUS FELIZ Report Released Date/Time : Jun 08, 2022 09:07 AM Reporting Lab: [place] [facility] [address] [place] [address] 8 Performin g [facility]: [place] [facility] [address] [place] [address] 8 [facility] COMPREHENSI VE METABOLIC PANEL PROTEIN [MASS/VOLUME] IN SERUM OR PLASMA 8.0 g/dL 6 - 8.6 05/31 Specimen Type: PLASMA No comment entered. Ordering Provider: DARIUS FELIZ Report Released Date/Time : Jun 08, 2022 09:07 AM Reporting Lab: [place] [facility] [address] [place] [address] 8 Performin g [facility]: [place] [facility] [address] [place] [address] 8 [facility] COMPREHENSI VE METABOLIC PANEL ALBUMIN [MASS/VOLUME] IN SERUM OR PLASMA 4.5 g/dL 3.4 - 5 05/31 Specimen Type: PLASMA No comment entered. Ordering Provider: DARIUS FELIZ Report Released Date/Time : Jun 08, 2022 09:07 AM Reporting Lab: [place] [facility] [address] [place] [address] 8 Performin g [facility]: [place] [facility] [address] [place] [address] 8 [facility] COMPREHENSI VE METABOLIC PANEL BILIRUBIN.TOT AL [MASS/VOLUME] IN SERUM OR PLASMA 1.0 mg/dL 0.2 - 1.2 05/31 Specimen Type: PLASMA No comment entered. Ordering Provider: DARIUS FELIZ Report Released Date/Time : Jun 08, 2022 09:07 AM Reporting Lab: [place] [facility] [address] [place] [address] 8 Performin g Lab: [place] [facility] [address] [place] [address] 8 [facility] COMPREHENSI VE METABOLIC PANEL ALKALINE PHOSPHATASE [ENZYMATIC ACTIVITY/VOLU ME] IN SERUM OR PLASMA 105 U/L 40 - 150 05/31 Specimen Type: PLASMA No comment entered. Ordering Provider: DARIUS FELIZ Report Released Date/Time : Jun 08, 2022 09:07 AM Reporting Lab: [place] [facility] [address] [place] [address] 8 Performin g Lab: [place] [facility] [address] [place] [address] 8 [facility] COMPREHENSI VE METABOLIC PANEL ASPARTATE AMINOTRANSFER ASE [ENZYMATIC ACTIVITY/VOLU ME] IN SERUM OR PLASMA 25 U/L 5 - 34 05/31 Specimen Type: PLASMA No comment entered. Ordering Provider: DARIUS FELIZ Report Released Date/Time : Jun 08, 2022 09:07 AM Reporting Lab: [place] [facility] [address] [place] [address] 8 Performin g Lab: [place] [facility] [address] [place] [address] 8 [facility] COMPREHENSI VE METABOLIC PANEL ALANINE AMINOTRANSFER ASE [ENZYMATIC ACTIVITY/VOLU ME] IN SERUM OR PLASMA 33 U/L 8 - 40 05/31 Specimen Type: PLASMA No comment entered. Ordering Provider: DARIUS FELIZ Report Released Date/Time : Jun 08, 2022 09:07 AM Reporting Lab: [place] [facility] [address] [place] [address] 8 Performin g Lab: [place] [facility] [address] [place] [address] 8 [facility] COMPREHENSI VE METABOLIC PANEL GLOMERULAR FILTRATION RATE/1.73 SQ M.PREDICTED [VOLUME RATE/AREA] IN SERUM, PLASMA OR BLOOD BY CREATININE-BA SED FORMULA (CKD-EPI 2020) 103 05/31 Specimen Type: PLASMA No comment entered. Ordering Provider: DARIUS FELIZ Report Released Date/Time : Jun 08, 2022 09:07 AM Reporting Lab: [place] [facility] [address] [place] [address] 8 Performin g [facility]: [place] [facility] [address] [place] [address] [facility] TSH (MA-PB-STL) THYROTROPIN [UNITS/VOLUME ] IN SERUM OR PLASMA 1.291 u[IU]/ mL 0.47 - 5 05/31 Specimen Type: SERUM No comment entered. Ordering Provider: DARIUS FELIZ Report Released Date/Time : Jun 08, 2022 09:07 AM Reporting Lab: [place] [facility] [address] [place] [address] 8 Performin g [facility]: [place] [facility] [address] [place] [address] 8 [facility] CHOLESTEROL PANEL (PB) CHOLESTEROL [MASS/VOLUME] IN SERUM OR PLASMA 199 mg/dL 0 - 200 05/31 Specimen Type: PLASMA No comment entered. Ordering Provider: DARIUS FELIZ Report Released Date/Time : Jun 08, 2022 09:07 AM Reporting Lab: [place] [facility] [address] [place] [address] 8 Performin g Lab: [place] [facility] [address] [place] [address] 8 [facility] CHOLESTEROL PANEL (PB) TRIGLYCERIDE [MASS/VOLUME] IN SERUM OR PLASMA 132 mg/dL 0 - 150 05/31 Specimen Type: PLASMA No comment entered. Ordering Provider: DARIUS FELIZ Report Released Date/Time : Jun 08, 2022 09:07 AM Reporting Lab: [place] [facility] [address] [place] [address] 8 Performin g Lab: [place] [facility] [address] [place] [address] 8 [facility] CHOLESTEROL PANEL (PB) CHOLESTEROL IN LDL [MASS/VOLUME] IN SERUM OR PLASMA BY CALCULATION 129.6 mg/dL 05/31 Specimen Type: PLASMA No comment entered. Ordering Provider: DARIUS FELIZ Report Released Date/Time : Jun 08, 2022 09:07 AM Reporting Lab: [place] [facility] [address] [place] [address] 8 Performin g Lab: [place] [facility] [address] [place] [address] 8 [facility] CHOLESTEROL PANEL (PB) CHOLESTEROL IN HDL [MASS/VOLUME] IN SERUM OR PLASMA 43.0 mg/dL 40 05/31 H Specimen Type: PLASMA No comment entered. Ordering Provider: DARIUS FELIZ Report Released Date/Time : Jun 08, 2022 09:07 AM Reporting Lab: [place] [facility] [address] [place] [address] 8 Performin g Lab: [place] [facility] [address] [place] [address] 8 [facility] CHOLESTEROL PANEL (PB) CHOLESTEROL IN HDL/CHOLESTER OL.TOTAL [MASS RATIO] IN SERUM OR PLASMA 21.6 25 05/31 Specimen Type: PLASMA No comment entered. Ordering Provider: DARIUS FELIZ Report Released Date/Time : Jun 08, 2022 09:07 AM Reporting Lab: [place] [facility] [address] [place] [address] 8 Performin g Lab: [place] [facility] [address] [place] [address] 8 [facility] CBC LEUKOCYTES [#/VOLUME] IN BLOOD BY AUTOMATED COUNT 8.8 10*3/u L 3.6 - 11.2 05/31 Specimen Type: BLOOD No comment entered. Ordering Provider: DARIUS FELIZ Report Released Date/Time : Jun 08, 2022 09:07 AM Reporting Lab: [place] [facility] [address] [place] [address] 8 Performin g Lab: [place] [facility] [address] [place] [address] 8 [facility] CBC ERYTHROCYTES [#/VOLUME] IN BLOOD BY AUTOMATED COUNT 5.46 10*6/u L 4.10 - 5.70 05/31 Specimen Type: BLOOD No comment entered. Ordering Provider: DRAIUS FELIZ Report Released Date/Time : Jun 08, 2022 09:07 AM Reporting Lab: [place] [facility] [address] [place] [address] 8 Performin g [facility]: [place] [facility] [address] [place] [address] 8 [facility] CBC HEMOGLOBIN [MASS/VOLUME] IN BLOOD 16.0 g/dL 13.1 - 16.8 05/31 Specimen Type: BLOOD No comment entered. Ordering Provider: DARIUS FELIZ Report Released Date/Time : Jun 08, 2022 09:07 AM Reporting Lab: [place] [facility] [address] [place] [address] 8 Performin g [facility]: [place] [facility] [address] [place] [address] 8 [facility] CBC HEMATOCRIT [VOLUME FRACTION] OF BLOOD 47.4 38.2 - 48.4 05/31 Specimen Type: BLOOD No comment entered. Ordering Provider: DARIUS FELIZ Report Released Date/Time : Jun 08, 2022 09:07 AM Reporting Lab: [place] [facility] [address] [place] [address] 8 Performin g Lab: [place] [facility] [address] [place] [address] 8 [facility] CBC MCV [ENTITIC VOLUME] BY AUTOMATED COUNT 86.8 fL 80.0 - 100.0 05/31 Specimen Type: BLOOD No comment entered. Ordering Provider: DARIUS FELIZ Report Released Date/Time : Jun 08, 2022 09:07 AM Reporting Lab: [place] [facility] [address] [place] [address] 8 Performin g Lab: [place] [facility] [address] [place] [address] 8 [facility] CBC MCH [ENTITIC MASS] BY AUTOMATED COUNT 29.3 pg 27.0 - 34.0 05/31 Specimen Type: BLOOD No comment entered. Ordering Provider: DARIUS FELIZ Report Released Date/Time : Jun 08, 2022 09:07 AM Reporting Lab: [place] [facility] [address] [place] [address] 8 Performin g [facility]: [place] [facility] [address] [place] [address] 8 [facility] CBC MCHC [MASS/VOLUME] BY AUTOMATED COUNT 33.8 g/dL 33.0 - 36.0 05/31 Specimen Type: BLOOD No comment entered. Ordering Provider: DARIUS FELIZ Report Released Date/Time : Jun 08, 2022 09:07 AM Reporting Lab: [place] [facility] [address] [place] [address] 8 Performin g [facility]: [place] [facility] [address] [place] [address] 8 [facility] CBC PLATELETS [#/VOLUME] IN BLOOD BY AUTOMATED COUNT 359 10*3/u L 150 - 400 05/31 Specimen Type: BLOOD No comment entered. Ordering Provider: DARIUS FELIZ Report Released Date/Time : Jun 08, 2022 09:07 AM Reporting Lab: [place] [facility] [address] [place] [address] 8 Performin g [facility]: [place] [facility] [address] [place] [address] 8 [facility] CBC PLATELET MEAN VOLUME [ENTITIC VOLUME] IN BLOOD BY AUTOMATED COUNT 9.1 fL 7.5 - 11.2 05/31 Specimen Type: BLOOD No comment entered. Ordering Provider: DARIUS FELIZ Report Released Date/Time : Jun 08, 2022 09:07 AM Reporting Lab: [place] [facility] [address] [place] [address] 8 Performin g [facility]: [place] [facility] [address] [place] [address] 8 [facility] CBC ERYTHROCYTE DISTRIBUTION WIDTH [RATIO] BY AUTOMATED COUNT 13.2 11.8 - 15.1 05/31 Specimen Type: BLOOD No comment entered. Ordering Provider: DARIUS FELIZ Report Released Date/Time : Jun 08, 2022 09:07 AM Reporting Lab: [place] [facility] [address] [place] [address] 8 Performin g [facility]: [place] [facility] [address] [place] [address] 8 [facility] CBC LYMPHOCYTES/1 00 LEUKOCYTES IN BLOOD BY AUTOMATED COUNT 26.5 05/31 Specimen Type: BLOOD No comment entered. Ordering Provider: DARIUS FELIZ Report Released Date/Time : Jun 08, 2022 09:07 AM Reporting Lab: [place] [facility] [address] [place] [address] 8 Performin g Lab: [place] [facility] [address] [place] [address] 8 [facility] CBC MONOCYTES/100 LEUKOCYTES IN BLOOD BY AUTOMATED COUNT 8.5 05/31 Specimen Type: BLOOD No comment entered. Ordering Provider: DARIUS FELIZ Report Released Date/Time : Jun 08, 2022 09:07 AM Reporting Lab: [place] [facility] [address] [place] [address] 8 Performin g [facility]: [place] [facility] [address] [place] [address] 8 [facility] CBC NEUTROPHILS/1 00 LEUKOCYTES IN BLOOD BY AUTOMATED COUNT 62.5 05/31 Specimen Type: BLOOD No comment entered. Ordering Provider: DARIUS FELIZ Report Released Date/Time : Jun 08, 2022 09:07 AM Reporting Lab: [place] [facility] [address] [place] [address] 8 Performin g [facility]: [place] [facility] [address] [place] [address] 8 [facility] CBC EOSINOPHILS/1 00 LEUKOCYTES IN BLOOD BY AUTOMATED COUNT 1.4 05/31 Specimen Type: BLOOD No comment entered. Ordering Provider: DARIUS FELIZ Report Released Date/Time : Jun 08, 2022 09:07 AM Reporting Lab: [place] [facility] [address] [place] [address] 8 Performin g [facility]: [place] [facility] [address] [place] [address] 8 [facility] CBC BASOPHILS/100 LEUKOCYTES IN BLOOD BY AUTOMATED COUNT 0.8 05/31 Specimen Type: BLOOD No comment entered. Ordering Provider: DARIUS FELIZ Report Released Date/Time : Jun 08, 2022 09:07 AM Reporting Lab: [place] [facility] [address] [place] [address] 8 Performin g [facility]: [place] [facility] [address] [place] [address] 8 [facility] CBC LYMPHOCYTES [#/VOLUME] IN BLOOD BY AUTOMATED COUNT 2.33 10*3/u L 0.77 - 4.50 05/31 Specimen Type: BLOOD No comment entered. Ordering Provider: DARIUS FELIZ Report Released Date/Time : Jun 08, 2022 09:07 AM Reporting Lab: [place] [facility] [address] [place] [address] 8 Performin g [facility]: [place] [facility] [address] [place] [address] 8 [facility] CBC MONOCYTES [#/VOLUME] IN BLOOD BY AUTOMATED COUNT 0.75 10*3/u L 0.19 - 0.8 05/31 Specimen Type: BLOOD No comment entered. Ordering Provider: DARIUS FELIZ Report Released Date/Time : Jun 08, 2022 09:07 AM Reporting Lab: [place] [facility] [address] [place] [address] 8 [facility]formin [facility]: [place] [facility] [address] [place] [address] 8 [facility] CBC NEUTROPHILS [#/VOLUME] IN BLOOD BY AUTOMATED COUNT 5.49 10*3/u L 2.10 - 8.00 05/31 Specimen Type: BLOOD No comment entered. Ordering Provider: DARIUS FELIZ Report Released Date/Time : Jun 08, 2022 09:07 AM Reporting Lab: [place] [facility] [address] [place] [address] 8 Performin g [facility]: [place] [facility] [address] [place] [address] 8 [facility] CBC EOSINOPHILS [#/VOLUME] IN BLOOD BY AUTOMATED COUNT 0.12 10*3/u L 0.00 - 0.60 05/31 Specimen Type: BLOOD No comment entered. Ordering Provider: DARIUS FELIZ Report Released Date/Time : Jun 08, 2022 09:07 AM Reporting Lab: [place] [facility] [address] [place] [address] 8 Performin g [facility]: [place] [facility] [address] [place] [address] 8 [facility] CBC BASOPHILS [#/VOLUME] IN BLOOD BY AUTOMATED COUNT 0.07 10*3/u L 0.00 - 0.20 05/31 Specimen Type: BLOOD No comment entered. Ordering Provider: DARIUS FELIZ Report Released Date/Time : Jun 08, 2022 09:07 AM Reporting Lab: [place] [facility] [address] [place] [address] 8 Performin g [facility]: [place] [facility] [address] [place] [address] 8 [facility] CBC IMMATURE GRANULOCYTES/ 100 LEUKOCYTES IN BLOOD BY AUTOMATED COUNT 0.3 05/31 Specimen Type: BLOOD No comment entered. Ordering Provider: DARIUS FELIZ Report Released Date/Time : Jun 08, 2022 09:07 AM Reporting Lab: [place] [facility] [address] [place] [address] 8 Performin g [facility]: [place] [facility] [address] [place] [address] 8 [facility] CBC IMMATURE GRANULOCYTES [#/VOLUME] IN BLOOD BY AUTOMATED COUNT 0.03 10*3/u L 0.00 - 0.05 05/31 Specimen Type: BLOOD No comment entered. Ordering Provider: DARIUS FELIZ Report Released Date/Time : Jun 08, 2022 09:07 AM Reporting Lab: [place] [facility] [address] [place] [address] 8 Performin g [facility]: [place] [facility] [address] [place] [address] 8 [facility] Vital Signs Combined list of inpatient and outpatient Vital Signs from Department of Defense and Veterans Affairs, ranging from 12 months to all on record, depending upon the facility. Vital Sign Value Date Comments Source WEIGHT 369.8 10/07/2024 12:47:42 [facility] BMI 55 kg/m2 10/07/2024 12:47:42 [facility] WEIGHT 372.3 09/30/2024 12:28:55 [facility] BMI 55 kg/m2 09/30/2024 12:28:55 [facility] WEIGHT 371.7 09/23/2024 12:56:23 [facility] BMI 55 kg/m2 09/23/2024 12:56:23 [facility] WEIGHT 367 09/16/2024 12:29:16 [facility] BMI 54 kg/m2 09/16/2024 12:29:16 [facility] WEIGHT 374.9 09/09/2024 12:33:38 [facility] BMI 55 kg/m2 09/09/2024 12:33:38 [facility] Encounters Combined list of: 1) Encounters from Department of [facility] Affairs facilities going backup to the last 18 months, not all [place] inpatient encounters are included; 2) Encounters from the Department of [facility] facilities going backup to 280 months. Location Location Details Encounter Type Encounter Number Reason For Visit Attending Provider ADM Date DC Date Status Disposition Source [facility] Outpatient Encounter [id number] 07/18 [facility] Outpatient Encounter [id number] LILIA MCKEON 08/25 [facility] HC PRO PHONE CALL 5-10 MIN [id number] Diagnos is: ICD-10- CM Z71.89 Other specifi ed student success counselor KANE Bernal 08/25 [facility] Outpatient Encounter [id number] 08/27 [facility] OFF/OP EST OCTOBER X REQ PHY/QHP [id number] Diagnos is: ICD-10- CM I10 Essenti al (primar y) hyperte jaya CASS,JO MARCIANO R 08/28 [facility] OFFICE O/P EST LOW 20 MIN [id number] Diagnos is: ICD-10- CM K59.00 Constip ation, unspeci shakiraChristopher Lin 09/12 [facility] OFF[facility] O/P EST MOD 30 MIN [id number] Diagnos is: ICD-10- CM I10 Essenti al (primar y) hyperte jaya JAYANTLatosha GOSS BRITTANY Adrian 06/08 [facility] FEE [id number] Diagnos is: ICD-10- CM I10 Essenti al (primar y) hyperte jaya DOELLKANE 06/08 [facility] Outpatient Encounter [id number] 06/19 [facility] En[facility] [id number] 06/23 [facility] Encounter [id number] 06/25 [facility] [place] [facility] BHV IVNTJ GRP EA ADDL [id number] Diagnos is: ICD-10- CM E66.01 Morbid (severe ) obesity due to excess calorie ISAURA Flores 07/02 [place] [facility] FEE [id number] Diagnos is: ICD-10- CM E66.01 Morbid (severe ) obesity due to excess calorie ISAURA Flores 07/02 [facility] [place] [facility] Outpatient Encounter [id number] 07/15 [place] [facility] Outpatient Encounter [id number] 07/15 [facility] Outpatient Encounter [id number] LILIA MCKEON RIL L 07/16 [facility] N [place] [facility] BHV IVNTJ GRP EA ADDL [id number] Diagnos is: ICD-10- CM E66.01 Morbid (severe ) obesity due to excess calorie s ISAURA WESTON 07/22 [facility] FEE [id number] Diagnos is: ICD-10- CM E66.01 Morbid (severe ) obesity due to excess calorie s ISAURA WESTON 07/22 [facility] Outpatient Encounter [id number] 07/28 [facility] Outpatient Encounter [id number] 07/29 [facility] Outpatient Encounter [id number] 08/05 [facility] ADDL [id number] Diagnos is: ICD-10- CM E66.813 Obesity , class 3 ISAURA WESTON 08/05 [place] [facility] FEE [id number] Diagnos is: ICD-10- CM E66.813 Obesity , class 3 TRISTA,BR IANNE 08/05 [facility] OFF/OP EST OCTOBER X REQ PHY/QHP [id number] Diagnos is: ICD-10- CM Z01.31 Encount er for exam of blood pressur crystal fiorea l finding s KANE ODELL 08/12 [facility] [place] [facility] IVNTJ GRP EA ADDL [id number] Diagnos is: ICD-10- CM E66.813 Obesity , class 3 TRISTA,BR IANNE 08/12 [place] [facility] FEE [id number] Diagnos is: ICD-10- CM E66.813 Obesity , class 3 TRISTA,BR IANNE 08/12 [facility] [place] [facility] IV[facility] GRP EA ADDL [id number] Diagnos is: ICD-10- CM E66.813 Obesity , class 3 TRISTA,BR IANNE 08/19 [place] [facility] FEE [id number] Diagnos is: ICD-10- CM E66.813 Obesity , class 3 TRISTA,BR IANNE 08/19 [facility] [place] [facility] IV[facility] GRP EA ADDL [id number] Diagnos is: ICD-10- CM E66.813 Obesity , class 3 TRISTA,BR IANNE 08/26 [place] [facility] [id number] Diagnos is: ICD-10- CM E66.813 Obesity , class 3 TRISTA,BR IANNE 08/26 [facility] [place] [facility] IV[facility] GRP EA ADDL [id number] Diagnos is: ICD-10- CM E66.01 Morbid (severe ) obesity due to excess calorie s LIZY,R EBECCA A 09/09 [place] [facility] FEE [id number] Diagnos is: ICD-10- CM E66.01 Morbid (severe ) obesity due to excess calorie s LIZY,R EBECCA A 09/09 [facility] [place] [facility] IV[facility] GRP EA ADDL [id number] Diagnos is: ICD-10- CM E66.813 Obesity , class 3 TRISTA,BR MARKIE 09/16 [place] [facility] FEE [id number] Diagnos is: ICD-10- CM E66.813 Obesity , class 3 TRISTA,BR IANNE 09/16 [facility] [place] [facility] IV[facility] GRP EA ADDL [id number] Diagnos is: ICD-10- CM E66.01 Morbid (severe ) obesity due to excess calorie s LIZY,R EBECCA A 09/23 [place] [facility] FEE [id number] Diagnos is: ICD-10- CM E66.01 Morbid (severe ) obesity due to excess calorie s LIZY,R EBECCA A 09/23 [facility] [place] [facility] IV[facility] GRP EA ADDL [id number] Diagnos is: ICD-10- CM E66.813 Obesity , class 3 TRISTA,BR IANNE 09/30 [place] [facility] FEE [id number] Diagnos is: ICD-10- CM E66.813 Obesity , class 3 ISAURA WESTON 09/30 [facility] [place] [facility] BHV IVNTJ GRP EA ADDL [id number] Diagnos is: ICD-10- CM E66.01 Morbid (severe ) obesity due to excess calorie s LIZYR EBECCA A 10/07 [facility] [facility] [id number] Diagnos is: ICD-10- CM E66.01 Morbid (severe ) obesity due to excess calorie s LIZYR EBECCA A 10/07 [facility] Outpatient Encounter [id number] JUAN DANIEL RAMIREZ R 10/12 [facility] Outpatient Encounter [id number] 11/20 [facility] Outpatient Encounter [id number] 11/30 [facility] Outpatient Encounter [id number] 12/02 [facility] PH1 ASSMT&MGMT NQHP 5-10 [id number] Diagnos is: ICD-10- CM M79.661 Pain in right lower leg KANE ODELL R 12/16 [facility] Social History Combined list of available smoking, tobacco, and other social history from Department of Defense and Veterans Affairs facilities. Social History Type Response Date Comment [facility] e Tobacco smoking status [facility] VA-TOBACCO USE FORMER CIGARETTES 06/08/2024 [facility] [place] [facility] History of tobacco use VA-TOBACCO NEVER USED OTHER TYPE 06/08/2024 [facility] [place] [facility] History of tobacco use VA-TOBACCO QUIT 15 YRS OR MORE 06/07/2023 [facility] [place] [facility] History of tobacco use VA-TOBACCO FORMER USER 06/08/2022 [facility] [place] [facility] History of tobacco use VA-TOBACCO FORMER USER 06/08/2021 [facility] [place] [facility] History of tobacco use VA-TOBACCO QUIT 5 TO < 15 YRS 06/13/2020 [facility] [place] [facility] History of tobacco use VA-TOBACCO FORMER USER 12/27/2017 [facility] [place] [facility] History of tobacco use QUIT TOBACCO >7 YEARS AGO 10/21/2013 [facility] [place] [facility] History of tobacco use QUIT TOBACCO IN THE LAST 12 MONTHS 07/23/2008 [facility] History of tobacco use CURRENT TOBACCO USER 07/04/2007 [facility] History of tobacco use CURRENT SMOKER 05/15/2001 3 cigs per day [facility]ANTANA MATHIS [facility] Plan of Care List of future care activities from Department of Veterans Affairs facilities. Additional future care activities may be listed in the Assessment and Plan section. Date/Time Care Activity Care Activity Detail Facili ty 05/28/2025 AMBULATORY - MEDICINE AMBULATORY - [place]IC[place] [facility] [place] [facility]
[2024-12-16 17:07] VITALS: BP 127/98; PULSE 86; TEMP 36.6; O2SAT 96
--- OUTSIDE RECORDS SUMMARY | 2024-12-16 17:17 | XMS_ITS | Data Portability ---
Author Organization [place] [facility] [place], ADMIN Address [address] [place] [address] Assessment Encounter Date Assessment Date Assessment LastModified by Organization Details LastModified Time 10/26/2022 10/26/2022 a 47-year-old male presents to the clinic for consultation regarding a screening colonoscopy. He has never had a colonoscopy in the past. He denies any changes in bowel habits or GI bleeding. He states that he does not know if he has any family history of colon cancer. He does not smoke yearly consumes alcohol he denies any upper GI complaints. Impression: 1. Screening colonoscopy 2. No previous EGD or colonoscopy 3. No changes in bowel habits or GI Bleeding 4. Unknown family history of GI cancers 5. No pertinent past medical history Recommendations: 1. Schedule screening colonoscopy at patient's earliest convenience 2 follow up in GI clinic based on clinical course [email or web address] Not available 10/26/2022 14:42:33 12/07/2022 12/07/2022 a 47-year-old male presents to the clinic for follow up after a screening colonoscopy. He has never had a colonoscopy in the past. He denies any changes in bowel habits or GI bleeding. He states that he does not know if he has any family history of colon cancer. He does not smoke yearly consumes alcohol he denies any upper GI complaints. Impression: 1. Sessile serrated adenomatous colon polyp 2. No changes in bowel habits or GI Bleeding 3. Unknown family history of GI cancers 4. No pertinent past medical history Recommendations: 1. Repeat screening/survei llance colonoscopy in 2-3 years 2. High fiber diet 3. Ensure adequate water intake/64oz daily 4 follow up in GI clinic based on clinical course [email or web address] Not available 12/07/2022 10:52:43 11/20/2024 11/20/2024 49-year-old male presents to the clinic to schedule a screening colonoscopy. His previous colonoscopy was 2 years ago and adenomatous colon polyps were removed. He denies any changes in bowel habits or GI bleeding. He has no known family history of colon cancer. He does not smoke or regularly consume alcoho.l he denies any upper GI complaints. Colonoscopy 11/09/2022: Moderate size internal hemorrhoids. Hypertrophied anal papillae. 11 mm sessile sigmoid polyp removed completely and sent to pathology --Sessile serrated colon polyp Impression: 1. Screening colonoscopy 2. History of Sessile serrated adenomatous colon polyp 2. No changes in bowel habits or GI Bleeding 3. No known family history of GI cancers 4. No pertinent past medical history 5. Elevated BMI 55.4 6. Non-smoker Recommendations: 1. Schedule screening/survei llance colonoscopy 2. High fiber diet 3. Ensure adequate water intake/64oz daily 4. Follow up in GI clinic 2 weeks post colonoscopy if needed based on endoscopic findings [email or web address] Not available 11/20/2024 21:10:43 Plan of Treatment Reminders Order Date Submit Date Provider Last Modified By Organization Details Last Modified Time Details Appointments Establish ed Patient 2024 09:45A Kaylah BOYLE, N.P. Not available Not available Not available Lab None recorded. Referral None recorded. Procedures colonosco py procedure (PROC) - IV Lock, Initiate Take biopsies if indicated , possible hemorroid al banding, possible argon plasma coagulati on, possible hot/cold snare polypecto my, possible dilation of stricture . CPT: 12887, 65506, 97122,453 82 2024 025 [facility], [address], [place], [address], 12/08/2024 16:27:30 colonosco py procedure (PROC) - IV Lock, Initiate Take biopsies if indicated , possible hemorroid al banding, possible argon plasma coagulati on, possible hot/cold snare polypecto my, possible dilation of stricture . CPT: 46247, 31570, 46032,453 [address] [facility], [address], [place], [address], 12/06/2022 17:14:11 Surgeries None recorded. Imaging None recorded. Medication Orders Suprep Bowel Prep Kit 17.5 gram-3.13 gram-1.6 gram oral solution 2022 023 [email or web address], [address], [place], [address], 12/07/2022 10:33:44 Patient TargetsNo targets recorded. Patient InstructionsNo instructions recorded. Reason for Referral None Reported. Problems Name Problem SNOMED Code Status Onset Date Resolution Date Notes Provider Name and Address Organization Details Recorded Time Hypertensive disorder 06654885 Active Jane Lirianodavis [facility]14 [place] 3 10:55:22 Sessile serrated polyp of colon Active 2022 SUZY BOYLE NP [address], [place], [address], [facility] [place] 3 10:52:52 Adenomatous polyp of colon 647460888 Active 2022 SUZY BOYLE NP [address] [facility] [facility], [place], [address], [facility] [place] 3 10:52:57 Problem Notes None recorded. Medical Equipment None Reported. Allergies No known drug allergies Medications Name Sig Start Date Stop Date Status Note LastModified by Organization Details LastModified Time methocarbam ol 500 mg tablet TAKE 2 TABLETS BY MOUTH EVERY 8 HOURS 11/20 completed Not Available Not Available Not Available hydrochloro thiazide 12.5 mg tablet TAKE 1 TABLET BY MOUTH ONCE DAILY active Not Available Not Available No t Available Suprep Bowel Prep Kit 17.5 gram-3.13 gram-1.6 gram oral solution Take 177 mL twice a day by oral route as directed for 1 day. 12/07 completed Not Available Not Available Not Available Vitals Date Recorded Body weight Heart rate Systolic And Diastolic Provider Name and Address Organization Details Last Updated DateTime 10/26/2022 029060.55 g 97 /min 163/97 mm[Hg] Jane Pelayo [address] 10/26/2022 10:54:54 Date Recorded Body height Body mass index (BMI) Body weight Oxygen saturation Oxygen saturation in Arterial blood by Pulse oximetry Heart rate Systolic And Diastolic Provider Name and Address Organization Details Last Updated DateTime 5 175.26 cm 55.4 kg/m2 523340. 14 g 97 % 97 % 65 /min 121/63 mm[Hg] Madeline Aguilera , [employer] [address] 15:57:42 Date Recorded Body weight Oxygen saturation Oxygen saturation in Arterial blood by Pulse oximetry Heart rate Body temperature Body mass index (BMI) Body height Systolic And Diastolic Provider Name and Address Organization Details Last Updated DateTime 3 417542. 46 g 96 % 96 % 62 /min 97.1 [degF] 51.6 kg/m2 175.26 cm 136/79 mm[Hg] Laverne Moy CMA [address] 10:33:08 Social History None recorded. Functional Status None recorded. Mental Status None recorded. Family History Nothing Reported. Medical History No medical history recorded. Past Encounters Encounter ID Performer Location Encounter Start Date Encounter Closed Date Diagnosis/Indication Diagnosis SNOMED-CT Code Diagnosis ICD10 Code Diagnosis Note [id number] Davide Nicholson MD [facility] [address] [place], [place] [address] 10/26/2022 10:25:59 10/29/2022 09:49:28 Screening colonoscopy 910990294 Z12.11 [id number] Davide Nicholson MD [facility] [address] [place], [place] [address] 12/07/2022 10:29:03 12/07/2022 13:08:04 Sessile serrated polyp of colon 1973865050 D12.6 Adenomatou s polyp of colon 469856813 D12.6 [id number] Davide Nicholson MD [facility] [address] [place] [address] 11/20/2024 15:47:57 11/20/2024 17:07:42 Screening for malignant neoplasm of colon 018039280 Z12.11 Health Concerns Section Related Observation LastModified by Organization Detai ls LastModified Time None Recorded Concern Status LastModified by Organization Details LastModified Time None Recorded Advance Directives Directive None Recorded Payers Insurance Date Sequence Insurance Name Policy Number Policy Shultz Covered Member ID Shultz Member ID Guarantor Name 11/17/2024 [employer] - [facility] Ravin Carmichael [id number] Ravin Vidales [place] 12/25/2022 [employer] (MOVED TO HOLD) Ravin Jr Carmichael Ravin Vidales [place] Notes Date Note Type Note Provider Name and Address Organization Details Recorded Time 10/26/2022 text/html a 47-year-old kendrick horowitz presents to the clinic for consultation regarding a screening colonoscopy. He has never had a colonoscopy in the past. He denies any changes in bowel habits or GI bleeding. He states that he does not know if he has any family history of colon cancer. He does not smoke yearly consumes alcohol he denies any upper GI complaints. Impression:1. Screening colonoscopy2. No previous EGD or colonoscopy3. No changes in bowel habits or GI Bleeding4. Unknown family history of GI cancers5. No pertinent past medical history Recommendations:1. Schedule screening colonoscopy at patient's earliest convenience2 follow up in GI clinic based on clinical course SUZY BOYLE NP [address] [place], [address], [place] [facility] [place] 10/26/2022 14:42:45 12/07/2022 text/html a 47-year-old kendrick horowitz presents to the clinic for follow up after a screening colonoscopy. He has never had a colonoscopy in the past. He denies any changes in bowel habits or GI bleeding. He states that he does not know if he has any family history of colon cancer. He does not smoke yearly consumes alcohol he denies any upper GI complaints. Impression:1. Sessile serrated adenomatous colon polyp2. No changes in bowel habits or GI Bleeding3. Unknown family history of GI cancers4. No pertinent past medical history Recommendations:1. Repeat screening/surveilla nce colonoscopy in 2-3 years2. High fiber diet3. Ensure adequate water intake/64oz daily4 follow up in GI clinic based on clinical course SUZY BOYLE NP [address] [place], [address], [place] [facility] [place] 12/07/2022 10:53:13 11/20/2024 text/html 49-year-old male presents to the clinic to schedule a screening colonoscopy. His previous colonoscopy was 2 years ago and adenomatous colon polyps were removed. He denies any changes in bowel habits or GI bleeding. He has no known family history of colon cancer. He does not smoke or regularly consume alcoho.l he denies any upper GI complaints. Colonoscopy 11/09/2022: Moderate size internal hemorrhoids. Hypertrophied anal papillae. 11 mm sessile sigmoid polyp removed completely and sent to pathology--Sessile serrated colon polyp Impression:1. Screening colonoscopy2. History of Sessile serrated adenomatous colon polyp2. No changes in bowel habits or GI Bleeding3. No known family history of GI cancers4. No pertinent past medical history Recommendations:1. Schedule screening/surveilla nce colonoscopy2. High fiber diet3. Ensure adequate water intake/64oz daily4. Follow up in GI clinic 2 weeks post colonoscopy if needed based on endoscopic findings SUZY BOYLE NP [facility] [place], [address], [place] [facility] [place] 11/20/2024 21:10:58
--- NOTE | 2024-12-16 17:41 | XRR_ITS ---
PROCEDURE INFORMATION: Exam: XR Right Knee Exam date and time: 12/16/2024 6:07 PM Age: 49 years old Clinical indication: Right; PT states he felt a pop while walking, which relieved the RT knee pain he had been having for approx. 3 weeks. Relief lasted for approx. 2 days and pain is worse now. No known initial injury TECHNIQUE: Imaging protocol: Radiologic exam of the right knee. Views: 3 views. COMPARISON: [place] [id number] ORTH 06/23/2024 3:35 PM FINDINGS: Bones/joints: No acute fracture or dislocation. No joint effusion. Soft tissues: Unremarkable. XR/XR knee RT 3V* [id number] IMPRESSION: No acute findings.
--- NOTE | 2024-12-16 18:33 | W.ED.EXTPRO ---
HPI - Extremity Problem General: Chief complaint: Extremity Problem,Nontraumatic Stated complaint: Rt. knee pain Source: patient Mode of arrival: ambulatory Limitations: no limitations History of Present Illness: 49yo male presents at the request of the [facility] due to concern of possible DVT. Patient reports for the past several months he has had pain and discomfort to the right outer thigh/right knee area that has been ongoing intermittently since July. States for the past several days it had worsened to where it was very tight. Patient reports that it is actually feeling better today. States he did speak to the [facility] and the nurse was very concerned of a possible DVT. They did recommend he come to the emergency department for evaluation. Patient denies history of DVT, use of blood thinners, pain to the lower leg, any other concerns at this time. Associated symptoms: Deny fever(s) Related Data Home Medications ?Medication ?Instructions ?Recorded ?Confirmed cholecalciferol (vitamin D3) 25 25 mcg PO DAILY 08/24/23 06/23/24 mcg (1,000 unit) capsule (Vitamin D3) turmeric 400 mg capsule 400 mg PO DAILY 08/24/23 06/23/24 lisinopril 40 mg tablet 20 mg PO DAILY 06/23/24 06/23/24 Previous Rx's ?Medication ?Instructions ?Recorded Custom co-poly insoles #1 ea 06/23/24 OPEN- BACK Orthopedic Shoes #1 ea 06/23/24 methocarbamol 500 mg tablet 1,000 mg (2 x 500 mg) PO Q8H #30 07/15/24 tabs Allergies Allergy/AdvReac Type Severity Reaction Status Date / Time morphine Allergy ALGY-Rash Verified 12/16/24 17:11 Review of Systems Const: Denies: fever(s), chills or body aches Musc: Reports: extremity pain (right outer lower thigh/knee) [facility] PFSH: Medical History (Updated 12/16/24 @ 20:07 by EN Olvera) Obesity COVID-19 Social History Smoking and tobacco/nicotine status: former use of tobacco/nicotine Alcohol intake: current Alcohol intake frequency: holidays/special occasions only Substance/Drug Use: never Lives independently: Yes service: Yes status: Discharged status details: served 4 years branch: [employer] [facility] [facility] Physical Exam Const: COMMON NORMALS: no acute distress, patient oriented x3 and alert GENERAL APPEARANCE: cooperative ORIENTATION/CONSCIOUSNESS: Yes awake OTHER: Patient is ambulatory to the vertical flow recliner unassisted. He is sitting upright on stretcher no acute distress. He is able to give history with no difficulty. He is interactive with exam appropriately. No family is at bedside HENMT: COMMON NORMALS: normocephalic and atraumatic HEAD & SCALP: normocephalic and atraumatic Chest: CHEST: Yes Symmetrical chest wall rise Resp: COMMON NORMALS: normal respiratory effort EFFORT & INSPECTION: Yes able to speak in complete sentences Extremity: RIGHT LOWER EXTREMITY: Yes knee joint Right knee: Yes inspection (No swelling, ecchymosis, erythema), Yes palpation (No significant tenderness to palpation.) and Yes ROM (FROM) OTHER: No calf tenderness to palpation. No inner leg TTP. Neuro: COMMON NORMALS: patient oriented x3 SENSORIUM/ORIENTATION: Yes alert Psych: COMMON NORMALS: cooperative Course Vital Signs: Vital signs: Vital Signs Temperature 97.9 F 12/16/24 17:07 Pulse Rate 72 12/16/24 20:15 Blood Pressure 156/100 12/16/24 20:15 Pulse Oximetry 98 12/16/24 20:15 Oxygen Delivery Me thod Room Air 12/16/24 17:07 MDM - Extremity (Nontraumatic) Medical Decision Making 49yo male presents at the request of the [facility] due to concern of possible DVT. Patient reports for the past several months he has had pain and discomfort to the right outer thigh/right knee area that has been ongoing intermittently since July. States for the past several days it had worsened to where it was very tight. Patient reports that it is actually feeling better today. States he did speak to the [facility] and the nurse was very concerned of a possible DVT. They did recommend he come to the emergency department for evaluation. Patient denies history of DVT, use of blood thinners, pain to the lower leg, any other concerns at this time. No acute abnormalities noted on the x-ray of the right knee. D-dimer is noted to be unremarkable. Discussed findings with patient. Advised he does not have a blood clot as his D-dimer is negative. Discussed with patient possibility of ITBS as well as injury of the lateral meniscus. With patient having improvement after removing his shoe inserts, discussed that it may have been related to an altered gait. Encourage patient to follow-up with primary care, call in the next couple of days with an update of symptoms and to discuss a recheck. Return precautions provided. Patient states understanding and has no further questions or concerns at this time. Medical Records I reviewed the patient's medical records. Lab Data I reviewed the patient's lab results. Radiology Impressions Knee X-Ray 12/16/24 17:41 IMPRESSION: No acute findings. Laboratory Results D-Dimer <= 0.27 ug/mLFEU (0-0.59) 12/16/24 19:21 All radiology interpretation(s) finalized by discharge Discharge Plan Discharge Patient Disposition: Home Clinical Impression: Pain in lateral portion of right knee Condition: Stable Prescriptions: No Action lisinopril 40 mg tablet 20 mg PO DAILY (DME) Custom co-poly insoles See Rx Instructions .Route .MEDSUPPLY Qty: 1 0RF Rx Instructions: As directed by [facility] ([facility] [place]) OPEN- BACK Orthopedic Shoes See Rx Instructions .Route .MEDSUPPLY Qty: 1 0RF Rx Instructions: As directed by [facility] Vitamin D3 25 mcg (1,000 unit) Capsule 25 mcg PO DAILY turmeric 400 mg Capsule 400 mg PO DAILY methocarbamol 500 mg tablet 1,000 mg PO Q8H Qty: 30 0RF Discharge Orders: Discharge ED (Routine); Ordered 12/16/24 Ordered By: John Singh Referrals: Kaitlin Camacho MD [Primary Care Provider, Family Practice] Patient Instructions: Knee Pain (ED), Patient Portal & Joyce Instructions Activity Restrictions/Additional Instructions: No acute abnormalities were noted on the x-ray of your knee today There is no indication of a blood clot as your D-dimer was negative The pain in the outside of the knee may be related to your inserts in the shoe, but there is no way for us to definitively know. 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
[2024-12-16 20:15] VITALS: BP 156/100; PULSE 72; O2SAT 98
== END 2024-12-16 20:16 | disposition home or self-care (01) ==
PROVIDERS: Emergency Provider Nurse Practitioner; PCP Family Medicine
DX: M25.561 Pain in right knee (principal); Z87.891 Personal history of nicotine dependence
CPT/HCPCS: 36415; 73562; 85378; 99284

== ENCOUNTER → 2025-01-22 09:01 | Outpatient (BNVA) | payer OTHER, SELFPAY | PROVIDERS: PCP Family Medicine; Visit Provider Nurse Practitioner | DX: M17.11 Unilateral primary osteoarthritis, right knee (principal); S83.241A Other tear of medial meniscus, current injury, right knee, initial encounter; X58.XXXA Exposure to other specified factors, initial encounter; Z68.42 Body mass index [BMI] 45.0-49.9, adult | CPT/HCPCS: 20610; 73560; 73565; 99204; 99214; J1100; J2795; J3301; J9999 ==

== ENCOUNTER 2025-02-12 06:38 | Outpatient (RCR) | payer OTHER, SELFPAY | END 2025-03-09 23:59 | disposition home or self-care (01) | LOC: SPT 06:38 | PROVIDERS: PCP Family Medicine; Visit Provider Nurse Practitioner | DX: S83.241D Other tear of medial meniscus, current injury, right knee, subsequent encounter (principal); X58.XXXD Exposure to other specified factors, subsequent encounter | CPT/HCPCS: 97110; 97161 ==

== ENCOUNTER → 2025-03-05 07:35 | Outpatient (BNVA) | payer OTHER, SELFPAY | PROVIDERS: PCP Family Medicine; Visit Provider Nurse Practitioner | DX: M17.11 Unilateral primary osteoarthritis, right knee (principal); S83.241D Other tear of medial meniscus, current injury, right knee, subsequent encounter; Z68.42 Body mass index [BMI] 45.0-49.9, adult; X58.XXXD Exposure to other specified factors, subsequent encounter | CPT/HCPCS: 99213 ==

== ENCOUNTER 2025-03-10 05:00 | Outpatient (RCR) | payer OTHER, SELFPAY | END 2025-04-09 23:59 | disposition home or self-care (01) | LOC: SPT 05:00 | PROVIDERS: PCP Family Medicine; Visit Provider Nurse Practitioner | DX: S83.241D Other tear of medial meniscus, current injury, right knee, subsequent encounter (principal); X58.XXXD Exposure to other specified factors, subsequent encounter | CPT/HCPCS: 97110 ==

== ENCOUNTER 2025-04-10 06:30 | Outpatient (RCR) | payer OTHER, SELFPAY | END 2025-04-19 07:35 | disposition home or self-care (01) | LOC: SPT 06:30 | PROVIDERS: PCP Family Medicine; Visit Provider Nurse Practitioner | DX: S83.241D Other tear of medial meniscus, current injury, right knee, subsequent encounter (principal); X58.XXXD Exposure to other specified factors, subsequent encounter | CPT/HCPCS: 97110 ==

== ENCOUNTER → 2025-04-16 07:47 | Outpatient (BNVA) | payer OTHER, SELFPAY | PROVIDERS: PCP Family Medicine; Visit Provider Nurse Practitioner | DX: M17.11 Unilateral primary osteoarthritis, right knee (principal); S83.241D Other tear of medial meniscus, current injury, right knee, subsequent encounter; Z68.42 Body mass index [BMI] 45.0-49.9, adult; X58.XXXD Exposure to other specified factors, subsequent encounter | CPT/HCPCS: 99213 ==